=== PATIENT | female | born 1935 | race Caucasian/White ===

== ENCOUNTER 2023-09-05 14:10 | Inpatient (IN) | payer MEDICARE, BC, SELFPAY ==
[2023-09-05] VITALS (8 sets, daily range): BP systolic 85–128; BP diastolic 43–62; BMI 15.3
--- NOTE | 2023-09-05 09:28 | ED.GENMED ---
History of Present Illness
General
Chief Complaint: Breathing Problem
Source: patient and ambulance crew
Exam Limitations: none
Time Seen by Provider: 09/05/23 09:14
Nursing documentation reviewed up to this point in time: agreed with
History of Present Illness
History of Present Illness:
88-year-old female with a past medical history of hypertension, hyperlipidemia, COPD who presents to the emergency room from [facility] where she lives independently; she presents via EMS for evaluation of shortness of breath. Patient reports that
she has had chronic dyspnea related to her COPD. She says she had an acute worsening of her dyspnea this morning when she woke up. She says that she normally goes for a long walk every morning and does yoga but that this morning her activity was
limited by shortness of breath�she says she could not catch her breath. She says she has had a chronic cough with her COPD it seems a bit worse this morning and has been productive of clear sputum. She says she has some mild right-sided chest
discomfort. She denies any recent fever or chills. She has not noticed any swelling or pain in the legs. She denies any GI issues. She denies any other complaints. She says she has been taking her home medications including her Spiriva without
missing any doses. Per EMS report they did give her 10 mg of Decadron and a single DuoNeb.
Past History
Past History
ED Past Medical History: HTN and Hypercholesterolemia
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
Social History
Tobacco: Former smoker
Alcohol: None
Drug: None
Living: alone
Review of Systems
Review of Systems
All Other Systems: ROS reviewed and negative except as documented in HPI and ROS
Constitutional: Denies fever or chills
EENT: Denies sore throat or runny nose
Respiratory: Reports cough and trouble breathing
Cardiac: Reports chest pain; Denies diaphoresis or palpitations
ABD/GI: Denies abdominal pain, nausea, vomiting or diarrhea
: Denies flank pain
Musculoskeletal: Denies neck pain or back pain
Neurological: Denies headache, weakness or numbness
Phy Exam
Physical Exam
Physical Exam:
General: Awake, alert, oriented x3; no acute distress
Head: Normocephalic, atraumatic
Eyes: Conjunctiva normal, EOMI
Throat: Airway intact, handling secretions
Neck: Trachea midline, supple without meningismus, no JVD
Lungs: Patient is tachypneic with a respiratory rate of 26, pulse ox low normal 92% on room air; she has no audible wheezing or rales on lung auscultation; she is speaking in full sentences, no increased work of breathing, not in respiratory distress
Heart: Tachycardia with regular rhythm; she has a holosystolic murmur best heard left upper sternal border
Abd: Soft, non distended, nontender
Neuro: No gross deficits
Skin: no rash, no clubbing or cyanosis
Extremities: No edema in extremities, warm and well-perfused
Scores
Heart Failure Risk
Heart Failure Risk Score: Not Applicable
Heart Score for Chest Pain Patients
STEMI patient?: Not applicable
Withdrawal Assessment of Alcohol
Withdrawal Assessment Completed?: Not applicable
Course
Orders/Labs/Results
Orders:
Orders
09/05/23 09:15
Electrocardiogram (*1) Urgent
Reason for Study: Shortness of Breath
EKG- Treatment ONCE
CR Chest Portable - 1 View Urgent
Comment:
Reason For Exam: sob
Reason Study Needs to be Portable: Unable to Transport
09/05/23 09:30
Ipratropium/Albuterol Sulfate [Duoneb] 3 ml INH R NOW STA
09/05/23 09:51
COVID-19 Antigen Urgent
Source: Nasal Swab
Complete Blood Count/With Diff Urgent
Comprehensive Metabolic Panel Urgent
D-Dimer Urgent
NT-proBNP Urgent
PTT Urgent
Prothrombin Time Urgent
Troponin I Urgent
Influenza A+B Rapid Molecular Urgent
ROGE Source: Nasal Swab
Specimen Description:
09/05/23 10:44
Azithromycin 500 mg/250 ml [Zithromax Infusion] 500 mg in 250 ml IV NOW
CefTRIAXone [Rocephin] 1,000 mg IV NOW STA
09/05/23 11:25
Lactate Level [Lactic Acid] Urgent
Blood Culture Q30M
ROGE Source: Blood/Venous
Specimen Description:
Blood Culture Q30M
ROGE Source: Blood/Venous
Specimen Description:
Abnormal Lab Results
09/05/23 09/05/23
09:51 11:25
Abs Immat Gran (auto) 0.1 H 10^3/uL
(0-0.05)
Absolute Neuts (auto) 7.1 H 10^3/uL
(1.4-6.5)
Absolute Monos (auto) 0.9 H 10^3/uL
(0.1-0.6)
Lymphocytes % 17.2 L %
(20.5-51.1)
Monocytes % 9.4 H %
(1.7-9.3)
D-Dimer 0.84 H ug/mlFEU
(0.00-0.50)
BUN 22 H mg/dl
(7-17)
Glucose 139 H mg/dl
(70-99)
Lactic Acid 3.0 H mmol/L
(0.7-2.0)
AST 38 H U/L
(14-36)
09/05/23 09:51
09/05/23 09:51
Vital Signs
Initial and Last Documented VS:
Initial Vital Signs
Temp Pulse Resp BP Pulse Ox
36.7 C 104 22 106/43 94
09/05/23 09:31 09/05/23 09:31 09/05/23 09:31 09/05/23 09:31 09/05/23 09:31
Last Documented Vital Signs
Temp Pulse Resp BP Pulse Ox
36.7 C 111 18 128/47 91
09/05/23 09:31 09/05/23 11:33 09/05/23 11:33 09/05/23 11:33 09/05/23 11:33
MDM/Problems Addressed
Differential Diagnosis Includes:
COPD exacerbation, pneumonia, pneumothorax, pulmonary embolism, anemia
MDM/Problems Addressed:
88-year-old female presents for evaluation of acute on chronic dyspnea and cough started this morning. She is tachycardic and tachypneic with a low normal pulse ox on arrival here. EMS gave her steroids and DuoNeb on the way to the hospital. On
exam here she has no significant wheezing. She is not edematous has no JVD or signs of heart failure. She does have a systolic murmur. Will plan to place an IV check labs including CBC and a CMP; will check cardiac enzymes, proBNP and a D-dimer.
Will check a chest x-ray. Will send viral swabs. Will treat with an additional DuoNeb and monitor for subjective improvement�although she has no significant wheezing on exam she does have a long history of COPD. Will monitor closely reassess
after the above.
Labs reviewed: CBC unremarkable, CMP shows no clinically significant abnormalities. Troponin negative, BNP no significant elevation. D-dimer age-adjusted is negative. Chest x-ray reviewed by me shows right midlung opacity concerning for
pneumonia. With multiple SIRS criteria and concern for pneumonia added lactate and blood cultures. Will treat with ceftriaxone and azithromycin. CURB-65 score 3 (age >65, BUN >19, diastolic BP <60) puts in high risk category. Will plan for
admission for continued treatment. Case discussed with hospitalist for admission.
Chronic conditions affecting care:
COPD
*Radiology
Radiology exam reviewed: preliminary read by ED provider and radiology read reviewed
*Pulse Oximetry
Patient hypoxic: no
*EKG
Interpreted by ED Provider?: Yes
Heart Rate: 109
Rate: tachycardiac
Rhythm: sinus and sinus tachycardia
[place]: normal axis
Interval: normal interval
QRS Pattern: normal QRS
Ischemia: no ischemia
*Critical Care Note
Total Time (30-74mins, 75-104mins- exclusive of procedures): Not Applicable
Data Reviewed
Review of Other/Old Records Reveals: Labs and Records
Source: patient, records and ambulance crew
ED Attending Note
-
Portions of this chart may have been created with voice recognition software.� Occasional wrong word or��sound alike� substitutions may have occurred due to the inherent limitations of voice recognition software.
Discharge Plan
Departure
Patient Disposition: Admit
Date of Disposition: 09/05/23
Time of Disposition: 10:47
Admit to doctor: Pravin
Presentation/result/management discussed w/ accepting MD/DO: Hospitalist
Discharge Problem:
Pneumonia
Prescriptions:
No Action
rosuvastatin 10 MG tablet
20 mg PO QPM
Patient Comments:
PT NO LONGER TAKES
diltiazem HCl 180 mg Capsule,Extended Release 24 Hr
180 mg PO BID
losartan 50 mg Tablet
50 mg PO DAILY
ipratropium-albuterol 0.5 mg-3 mg(2.5 mg base)/3 mL Solution For Nebulization
3 ml INHALATION
Referrals:
UNKNOWN - PT DOES,NOT KNOW [Family Provider] -
Interventions
Interventions:
*Risk Screen - Suicide Last Done: 09/05/23 09:31
*General Assessment Last Done: 09/05/23 09:31
*Neglect/Abuse Screening Last Done: 09/05/23 09:31
*ED COVID-19 Vaccine History Last Done: 09/05/23 09:31
ED- Cardiac Assessment Last Done: 09/05/23 10:41
ED- Pulmonary Assessment Last Done: 09/05/23 10:41
[2023-09-05] MEDS: DUONEB 3 ML INH ×3 (09:57→20:54)
[2023-09-05 10:02] LABS: % Basophils 0.6 % (0-2); % Eosinophils 0.7 % (0-6); % Immature Granulocytes 0.5 % (0-0.5); % Lymphocytes 17.2 % (20.5-51.1); % Monocytes 9.4 % (1.7-9.3); % Neutrophils 71.6 % (42.2-75.2); Absolute Basophils 0.1 10^3/uL (0-0.2); Absolute Eosinophils 0.1 10^3/uL (0-0.7); Absolute Immature Granulocytes 0.1 10^3/uL (0-0.05); Absolute Lymphocytes 1.7 10^3/uL (1.2-3.4); Absolute Monocytes 0.9 10^3/uL (0.1-0.6); Absolute Neutrophils 7.1 10^3/uL (1.4-6.5); Hematocrit 43.7 % (37.0-47.0); Hemoglobin 14.4 g/dL (12.0-16.0); Mean Corpuscular Hgb 30.9 pg (27.0-31.0); Mean Corpuscular Volume 93.8 fL (81.0-99.0); Mean Platelet Volume 9.9 fL (7.4-10.4); Nucleated Red Blood Cells % 0 %; Platelet Count 328 10^3/uL (130-400); Red Blood Cell Count 4.66 10^6/uL (4.20-5.40); Red Cell Dist. Width 12.7 % (11.5-14.5); White Blood Cell Count 9.9 10^3/uL (4.8-10.8)
[2023-09-05 10:12] LABS: ALT (SGPT) 25 U/L (0-35); AST (SGOT) 38 U/L (14-36); Albumin 4.2 g/dl (3.5-5.0); Alkaline Phosphatase 83 U/L (38-126); Blood Urea Nitrogen 22 mg/dl (7-17); Calcium 8.9 mg/dl (8.4-10.2); Carbon Dioxide 23 mmol/L (22-30); Chloride 106 mmol/L (98-107); Estimated Creatinine Clearance 32 ml/min; Glucose 139 mg/dl (70-99); Potassium 3.7 mmol/L (3.5-5.1); Sodium 139 mmol/L (135-145); Total Bilirubin 0.8 mg/dl (0.2-1.3); Total Protein 7.6 g/dl (6.3-8.2); eGFR > 60.00
[2023-09-05 10:22] LABS: COVID-19 Antigen Negative (Negative)
[2023-09-05 10:31] LABS: NT-proBNP 382 pg/ml; Troponin I < 0.012 ng/ml
[2023-09-05 10:46] LABS: INR 1.01; PT 13.3 Sec (11.4-14.6)
[2023-09-05 10:49] LABS: D-Dimer 0.84 ug/mlFEU (0.00-0.50)
[2023-09-05] MEDS: ZITHROMAX INFUSION 250 IV (11:28)
[2023-09-05] MEDS: ROCEPHIN 1000 MG IV (11:28)
--- NOTE | 2023-09-05 12:35 | PHANOTE ---
09/05/2023, med rec tech, used [facility] records and pharmacy fill data and called pt.'s pharmacy ([facility]) to confirm pt.'s meds.; pt. gets a pill pack sent to [facility] with all of their meds.; although Alendronate 70 mg (pt. supposed to take
on Sundays per family) is included in pt.'s pill pack, per family, pt. does not take this med.
--- NOTE | 2023-09-05 13:16 | HPS.HSE ---
Addendum entered and electronically signed by Renetta Horn MD 09/05/23 14:09:
d-dimer not elevated when adjusted for age. symptoms improved with nebulizers, not concerned for PE.
Original Note:
Family Physician
-
Family Physician: NOT KNOW UNKNOWN - PT DOES
Chief Complaint
-
shortness of breath
History of Present Illness
Ms. Neha Phillips is a 88 yo woman with hx HTN, HLD, COPD presents to the ER with shortness of breath. She was given 10mg IV Decadron and duoneb by EMS.
Patient states symptoms started this morning after she woke up. She does yoga and walks every morning. She uses her inhaler once a day. Denies fevers. + cough productive of increased sputum. no hemoptysis. Patient currently feeling better in
the ER.
No chest pain. No nausea/vomiting/diarrhea. No LE swelling.
Medical History
Past Medical History
Past Medical History: Reports Other ( hypertension, hypercholesteremia, COPD, bronchiectasis, kidney stones, former smoker,)
Past Surgical History: Reports Other (of hypertension, hypercholesteremia, COPD, bronchiectasis, kidney stones, former smoker)
Social History
Tobacco: Former Smoker
Alcohol: Former
Drug: None
Family History
Family History: Not pertinent
Allergies / Home Medications
Allergies reflects when Allergies were last updated in [facility].
Home Medications with original date entered in [facility]
Allergy/Medication List:
Allergies
Allergy/AdvReac Type Severity Reaction Status Date / Time
No Known Allergies Allergy Unverified 03/20/23 14:38
Home Medications
rosuvastatin 10 mg tablet 10 mg PO QPM High Cholesterol 05/18/09
diltiazem HCl 180 mg capsule,24 hr,extended release 180 mg PO BID Arrhythmia 12/20/22
losartan 50 mg tablet 50 mg PO DAILY Blood Pressure 12/20/22
ipratropium 0.5 mg-albuterol 3 mg (2.5 mg base)/3 mL nebulization soln 3 ml inhalation R DAILY 03/20/23
albuterol sulfate 90 mcg/actuation aerosol inhaler 2 puff inhalation R Q6HPRN PRN sob 09/05/23
mirtazapine 7.5 mg tablet 7.5 mg PO HS 09/05/23
Review of Systems
-
History Source: Patient
A 12 point ROS was completed and negative except as noted: Yes
Physical Exam
Vital Signs
Vital Signs
Temp Pulse Resp BP Pulse Ox
98.1 F 105 21 110/57 91
09/05/23 09:31 09/05/23 12:30 09/05/23 12:30 09/05/23 12:00 09/05/23 12:30
Physical Exam
General: No Apparent Distress
HEENT: PERRLA
Respiratory: Other (mild end expiratory wheezing)
Cardiac: S1/S2 and Regular Rhythm
GI: Soft and Non Tender
Musculoskeletal: No Edema
Skin: Warm and Dry; No Rash
Neuro: AO x 3
Psych: Calm
Laboratory Results
-
09/05/23 09:51
09/05/23 09:51
Laboratory Results
PT 13.3 Sec (11.4-14.6) 09/05/23 09:51
INR 1.01 09/05/23 09:51
APTT 30.0 Sec (23.4-35.0) 09/05/23 09:51
Lactic Acid 3.0 mmol/L (0.7-2.0) H 09/05/23 11:25
Total Bilirubin 0.8 mg/dl (0.2-1.3) 09/05/23 09:51
AST 38 U/L (14-36) H 09/05/23 09:51
ALT 25 U/L (0-35) 09/05/23 09:51
Alkaline Phosphatase 83 U/L (38-126) 09/05/23 09:51
Troponin I < 0.012 ng/ml 09/05/23 09:51
Data Reviewed
-
Diagnostic Radiology: Report Reviewed by me
Lab Data: Labs Reviewed by me
Impression/Plan
-
Ms. Neha Phillips is a 88 yo woman with hx HTN, HLD, COPD presents to the ER with shortness of breath. She was given 10mg IV Decadron and duoneb by EMS.
Triage VS: T 36.7, P 104, RR 22, BP 106/43, SpO2 94%
LABS: WBC 9.9, Hg 14.4, PLT 328, Na 139, K+ 3.7, BUN 22, Cr 0.8, Glucose 139, Lactate 3.0, Ca 8.9, T. Bili 0.8, AST 38, ALT 25, Alk Phos 83
Trop < 0.012
BNP 382
Flu negative, covid negative
CXR
IMPRESSION:
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
Right midlung Pneumonia
-admit to med/surg
-continue cef/azithro
-sputum culture
-mucinex, acapella
-gentle IVF
COPD, acute exacerbation
-s/p decadron by EMS - will continue starting tomorrow
-duonebs
HLD
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
HTN
-hold Losartan for now - resume if hypertensive
Elevated Lactate
-likely 2/2 increased work of breathing - trend
-gentle IVF
DVT PPx lovenox
DNR - discussed on admission
[2023-09-05] MEDS: NSS 1000 IV ×2 (14:34→18:31)
[2023-09-05 16:17] LABS: Lactic Acid 4.1 mmol/L (0.7-2.0)
[2023-09-05] MEDS: DUONEB INH (16:26)
[2023-09-05] MEDS: CRESTOR 10 MG PO (17:27)
[2023-09-05] MEDS: LOVENOX 40 MG SC (17:27)
--- NOTE | 2023-09-05 18:10 | PTCARENOTE ---
pt admitted from ED awake alert x3 appears anxious and forgetful. lungs coarse throughout b/l on 2L. +BS4 abd soft NT. pt cont b&B. skin CDI +PP b/l
[2023-09-05] MEDS: CARDIZEM CD PO (20:29)
[2023-09-05] MEDS: MUCINEX 600 MG PO (20:30)
[2023-09-05] MEDS: REMERON 7.5 MG PO (21:06)
[2023-09-05 21:38] LABS: Lactic Acid 3.4 mmol/L (0.7-2.0)
[2023-09-06] MEDS: DECADRON 4 MG IV (05:04)
[2023-09-06 05:33] LABS: % Basophils 0.1 % (0-2); % Immature Granulocytes 0.5 % (0-0.5); % Lymphocytes 5.3 % (20.5-51.1); % Monocytes 2.5 % (1.7-9.3); % Neutrophils 91.6 % (42.2-75.2); Absolute Immature Granulocytes 0.1 10^3/uL (0-0.05); Absolute Lymphocytes 0.8 10^3/uL (1.2-3.4); Absolute Monocytes 0.4 10^3/uL (0.1-0.6); Absolute Neutrophils 13.9 10^3/uL (1.4-6.5); Hematocrit 40.2 % (37.0-47.0); Hemoglobin 12.9 g/dL (12.0-16.0); Mean Corp Hgb Conc. 32.1 g/dL (33.0-37.0); Mean Corpuscular Hgb 30.4 pg (27.0-31.0); Mean Corpuscular Volume 94.8 fL (81.0-99.0); Mean Platelet Volume 9.5 fL (7.4-10.4); Nucleated Red Blood Cells % 0 %; Platelet Count 306 10^3/uL (130-400); Red Blood Cell Count 4.24 10^6/uL (4.20-5.40); Red Cell Dist. Width 12.9 % (11.5-14.5); White Blood Cell Count 15.2 10^3/uL (4.8-10.8)
[2023-09-06 05:41] LABS: Lactic Acid 1.7 mmol/L (0.7-2.0)
[2023-09-06 06:00] VITALS: BMI 17.5
[2023-09-06 06:21] LABS: Blood Urea Nitrogen 21 mg/dl (7-17); Calcium 8.4 mg/dl (8.4-10.2); Carbon Dioxide 23 mmol/L (22-30); Chloride 111 mmol/L (98-107); Estimated Creatinine Clearance 42 ml/min; Glucose 122 mg/dl (70-99); Potassium 4.6 mmol/L (3.5-5.1); Sodium 140 mmol/L (135-145); eGFR > 60.00
[2023-09-06 07:00] VITALS: BP 103/60
[2023-09-06] MEDS: DUONEB 3 ML INH ×4 (08:13→19:25)
[2023-09-06] MEDS: ZITHROMAX 500 MG PO (08:18)
[2023-09-06] MEDS: MUCINEX 600 MG PO ×2 (08:18→21:17)
[2023-09-06] MEDS: CARDIZEM CD PO ×2 (08:19→21:16)
--- NOTE | 2023-09-06 09:47 | W.PN.HOSP.TC ---
Today's Communication/Plan
-
sputum culture
continue cef/azithro for now - low threshold to change to levaquin if clinical worsening/no improvement (patient states she feels better today)
decadron/nebs
Assessment / Plan
Assessment / Plan
Ms. Neha Phillips is a 88 yo woman with hx HTN, HLD, COPD presents to the ER with shortness of breath.� She was given 10mg IV Decadron and duoneb by EMS.
CXR
IMPRESSION:
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
Right midlung Pneumonia
-admitted to med/surg
-continue cef/azithro (day 2). hx pseudomonas PNA in past. given improvement on this regimen do not see need to broaden abx now but low threshold if clinically worsens - discussed with RN obtaining sputum culture
-mucinex, acapella
Lactic Acidosis
-s/p fluids
-resolved this AM
COPD, acute exacerbation
-s/p decadron by EMS - will continue
-duonebs
HLD
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
HTN
-hold Losartan for now - resume if hypertensive
DVT PPx lovenox
DNR - discussed on admission
Anticipated Discharge: 24 - 48 hours
Subjective/Interval History
-
Date of Service: September 06, 2023
feeling better this morning
wants to stay one more night
out of breath when talks rapidly and with exertion
Objective Data
-
Labs:
Laboratory Results
09/06/23
05:23
WBC 15.2 H
Hgb 12.9
Hct 40.2
Plt Count 306
Sodium 140
Potassium 4.6
Chloride 111 H
Carbon Dioxide 23
BUN 21 H
Creatinine 0.6
Glucose 122 H
Calcium 8.4
Vital Signs:
Vital Signs
Temp Pulse Resp BP Pulse Ox
98.1 F 86 17 103/60 99
09/06/23 07:00 09/06/23 08:19 09/06/23 07:00 09/06/23 08:19 09/06/23 07:00
I&O
09/05/23 09/06/23 09/07/23
06:59 06:59 06:59
Intake Total 480 / 480
Balance 480 / 480
Review of Systems
-
History Source: Patient
All other systems: Reviewed and negative
Physical Exam
-
General: Appears Chronically Ill and Cachectic
HEENT: Normocephalic and Atraumatic; Negative Oxygen
Respiratory: Rhonchi and Other (mild end expiratory wheezing )
Cardiac: Regular Rhythm and S1/S2; Negative Murmur
GI: Soft, Nontender, Nondistended and Normal Bowel Sounds
Musculoskeletal: No Clubbing, No Cyanosis and No Edema
Skin: Warm
Neuro: Awake
Psych: Calm
Data Reviewed
-
Diagnostic Radiology: Report Reviewed by me
Labs: Labs Reviewed by me
[2023-09-06] MEDS: ROCEPHIN 1000 MG IV (12:38)
[2023-09-06] MEDS: STERILE WATER FOR INJECTION 10 ML IV (12:39)
[2023-09-06] MEDS: DECADRON 3 MG IV ×2 (14:05→21:17)
[2023-09-06 14:55] VITALS: BP 98/51
--- NOTE | 2023-09-06 16:38 | CM ---
Met with pt at bedside
From independent living at [facility]
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
Denies DME
SNF - [facility] in past
HH - denies
PCP- Dr Richardson
Pharm - [facility]
Has ride at d/c
Plan - anticipate home to previous setting
[2023-09-06] MEDS: CRESTOR 10 MG PO (17:15)
[2023-09-06] MEDS: LOVENOX 40 MG SC (17:16)
[2023-09-06] MEDS: REMERON 7.5 MG PO (21:27)
[2023-09-06 23:35] VITALS: BP 113/57
[2023-09-07] MEDS: DECADRON 3 MG IV ×3 (05:41→21:49)
[2023-09-07 05:47] LABS: % Basophils 0.1 % (0-2); % Immature Granulocytes 0.6 % (0-0.5); % Lymphocytes 3.9 % (20.5-51.1); % Monocytes 2.3 % (1.7-9.3); % Neutrophils 93.1 % (42.2-75.2); Absolute Immature Granulocytes 0.1 10^3/uL (0-0.05); Absolute Lymphocytes 0.9 10^3/uL (1.2-3.4); Absolute Monocytes 0.5 10^3/uL (0.1-0.6); Absolute Neutrophils 21.3 10^3/uL (1.4-6.5); Hematocrit 41.7 % (37.0-47.0); Hemoglobin 13.7 g/dL (12.0-16.0); Mean Corp Hgb Conc. 32.9 g/dL (33.0-37.0); Mean Corpuscular Hgb 31.1 pg (27.0-31.0); Mean Corpuscular Volume 94.8 fL (81.0-99.0); Mean Platelet Volume 9.8 fL (7.4-10.4); Nucleated Red Blood Cells % 0 %; Platelet Count 331 10^3/uL (130-400); Red Cell Dist. Width 13.2 % (11.5-14.5); White Blood Cell Count 22.9 10^3/uL (4.8-10.8)
[2023-09-07 06:13] LABS: Blood Urea Nitrogen 27 mg/dl (7-17); Calcium 9.1 mg/dl (8.4-10.2); Carbon Dioxide 27 mmol/L (22-30); Chloride 108 mmol/L (98-107); Estimated Creatinine Clearance 48 ml/min; Glucose 130 mg/dl (70-99); Potassium 5.1 mmol/L (3.5-5.1); Sodium 143 mmol/L (135-145); eGFR > 60.00
[2023-09-07 07:00] VITALS: BP 164/91
[2023-09-07] MEDS: DUONEB 3 ML INH ×4 (07:38→17:56)
[2023-09-07] MEDS: MUCINEX 600 MG PO (08:37)
[2023-09-07] MEDS: ZITHROMAX 500 MG PO (08:37)
[2023-09-07] MEDS: CARDIZEM CD 180 MG PO (08:37)
[2023-09-07 09:34] VITALS: BP 133/75; PULSE 110; PULSE 127; O2SAT 95
[2023-09-07 09:43] VITALS: BP 133/75; PULSE 107; PULSE 127; O2SAT 95
--- NOTE | 2023-09-07 10:09 | W.PN.HOSP.TC ---
Today's Communication/Plan
-
possible DC later today if home O2 testing OK
Assessment / Plan
Assessment / Plan
Ms. Neha Phillips is a 88 yo woman with hx HTN, HLD, COPD presents to the ER with shortness of breath.� She was given 10mg IV Decadron and duoneb by EMS.
CXR
IMPRESSION:
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
Right midlung Pneumonia
-admitted to med/surg
-day 3 abx. hx pseudomonas PNA in past. with rise in WBC and return of need for O2 - will broaden to cefepime. sputum culture is growing gram negative rods
-mucinex, acapella
-*patient very anxious for discharge and does not want to wait for final culture. If she is able to be discharged off oxygen then I would DC on LEvaquin and change back to cefdinir tomorrow if different species isolated
Lactic Acidosis
-s/p fluids
-resolved this AM
COPD, acute exacerbation
Hypoxic resp insufficiency
-s/p decadron by EMS - will continue
-duonebs
HLD
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
HTN
-hold Losartan for now - resume if hypertensive
DVT PPx lovenox
DNR - discussed on admission
Anticipated Discharge: Within 24 hours
Subjective/Interval History
-
Date of Service: September 07, 2023
patient anxious
wanting to leave today
Objective Data
-
Labs:
Laboratory Results
09/07/23
05:29
WBC 22.9 H
Hgb 13.7
Hct 41.7
Plt Count 331
Sodium 143
Potassium 5.1
Chloride 108 H
Carbon Dioxide 27
BUN 27 H
Creatinine 0.6
Glucose 130 H
Calcium 9.1
Vital Signs:
Vital Signs
Temp Pulse Resp BP Pulse Ox
97.7 F 107 18 133/75 95
09/07/23 07:00 09/07/23 08:37 09/07/23 07:45 09/07/23 08:37 09/07/23 07:45
I&O
09/06/23 09/07/23 09/08/23
06:59 06:59 06:59
Intake Total 480 / 480 570 / 570
Balance 480 / 480 570 / 570
Review of Systems
-
History Source: Patient
All other systems: Reviewed and negative
Physical Exam
-
General: Appears Chronically Ill and Cachectic
HEENT: Normocephalic and Atraumatic; Negative Oxygen
Respiratory: Rhonchi and Other (mild end expiratory wheezing )
Cardiac: Regular Rhythm and S1/S2; Negative Murmur
GI: Soft, Nontender, Nondistended and Normal Bowel Sounds
Musculoskeletal: No Clubbing, No Cyanosis and No Edema
Skin: Warm
Neuro: Awake
Psych: Calm
Data Reviewed
-
Diagnostic Radiology: Report Reviewed by me
Labs: Labs Reviewed by me
[2023-09-07] MEDS: MAXIPIME 2000 MG IV ×2 (11:41→21:57)
[2023-09-07] MEDS: STERILE WATER FOR INJECTION 10 ML IV ×2 (11:41→21:57)
[2023-09-07 15:00] VITALS: BP 116/57
[2023-09-07] MEDS: LOVENOX 40 MG SC (16:31)
[2023-09-07] MEDS: CRESTOR 10 MG PO (16:32)
[2023-09-07] MEDS: MUCINEX PO ×2 (21:49→22:08)
[2023-09-07] MEDS: CARDIZEM CD PO (21:50)
[2023-09-07] MEDS: REMERON 7.5 MG PO (21:57)
[2023-09-07 23:20] VITALS: BP 113/70
[2023-09-08] MEDS: DECADRON 3 MG IV ×3 (05:44→21:27)
[2023-09-08 06:04] LABS: % Basophils 0.2 % (0-2); % Immature Granulocytes 0.7 % (0-0.5); % Lymphocytes 3.7 % (20.5-51.1); % Monocytes 3.3 % (1.7-9.3); % Neutrophils 92.1 % (42.2-75.2); Absolute Immature Granulocytes 0.1 10^3/uL (0-0.05); Absolute Lymphocytes 0.7 10^3/uL (1.2-3.4); Absolute Monocytes 0.6 10^3/uL (0.1-0.6); Absolute Neutrophils 16.1 10^3/uL (1.4-6.5); Hematocrit 38.7 % (37.0-47.0); Hemoglobin 12.7 g/dL (12.0-16.0); Mean Corp Hgb Conc. 32.8 g/dL (33.0-37.0); Mean Corpuscular Hgb 30.8 pg (27.0-31.0); Mean Corpuscular Volume 93.9 fL (81.0-99.0); Mean Platelet Volume 9.8 fL (7.4-10.4); Nucleated Red Blood Cells % 0 %; Platelet Count 339 10^3/uL (130-400); Red Blood Cell Count 4.12 10^6/uL (4.20-5.40); Red Cell Dist. Width 13.2 % (11.5-14.5); White Blood Cell Count 17.5 10^3/uL (4.8-10.8)
[2023-09-08 06:24] LABS: Blood Urea Nitrogen 31 mg/dl (7-17); Calcium 8.8 mg/dl (8.4-10.2); Carbon Dioxide 27 mmol/L (22-30); Chloride 106 mmol/L (98-107); Estimated Creatinine Clearance 48 ml/min; Glucose 123 mg/dl (70-99); Potassium 4.8 mmol/L (3.5-5.1); Sodium 140 mmol/L (135-145); eGFR > 60.00
[2023-09-08 07:00] VITALS: BP 150/93
[2023-09-08] MEDS: DUONEB 3 ML INH ×4 (07:27→19:23)
[2023-09-08] MEDS: CARDIZEM CD 180 MG PO ×2 (08:34→20:09)
[2023-09-08] MEDS: MUCINEX 600 MG PO ×2 (08:34→20:09)
--- NOTE | 2023-09-08 10:33 | W.PN.HOSP.TC ---
Today's Communication/Plan
-
home O2 testing
patient very anxious for DC - if doesn't need O2 will need to discuss DC on Levaquin with risk would need to return if pseudomonas is resistant. will also discuss with son
Assessment / Plan
Assessment / Plan
Ms. Neha Phillips is a 88 yo woman with hx HTN, HLD, COPD presents to the ER with shortness of breath.� She was given 10mg IV Decadron and duoneb by EMS.
CXR
IMPRESSION:
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
Right midlung Pneumonia
COPD, acute exacerbation
Hypoxic resp insufficiency
-admitted to med/surg
-hx pseudomonas PNA in past. started on IV Cefepime 09/06 - per micro final sensitivities not back until tomorrow but looks like pseudomonas. Prior Pseudomonas sensitive to Fluoroquinolones.
-IV Decadron, DC on prednisone taper when ready for DC
-mucinex, acapella
-duonebs
-repeat home O2 testing today
-per micro final culture won't be back today but looks like pseudomonas
Lactic Acidosis
-s/p fluids
-resolved
HLD
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
HTN
-resume losartan
DVT PPx lovenox
DNR - discussed on admission
Anticipated Discharge: Within 24 hours
Subjective/Interval History
-
Date of Service: September 08, 2023
she is feeling better
very eager to go home
she is practicing deep breathing
Objective Data
-
Labs:
Laboratory Results
09/08/23
05:18
WBC 17.5 H
Hgb 12.7
Hct 38.7
Plt Count 339
Sodium 140
Potassium 4.8
Chloride 106
Carbon Dioxide 27
BUN 31 H
Creatinine 0.6
Glucose 123 H
Calcium 8.8
Vital Signs:
Vital Signs
Temp Pulse Resp BP Pulse Ox
98.5 F 90 18 150/93 95
09/08/23 07:00 09/08/23 07:32 09/08/23 07:32 09/08/23 07:00 09/08/23 07:32
I&O
09/07/23 09/08/23 09/09/23
06:59 06:59 06:59
Intake Total 570 / 570 540 / 540
Balance 570 / 570 540 / 540
Review of Systems
-
History Source: Patient
All other systems: Reviewed and negative
Physical Exam
-
General: No Apparent Distress and Appears Chronically Ill
HEENT: Normocephalic and Atraumatic; Negative Oxygen
Respiratory: Other (no wheezing today ); Negative Wheezes
Cardiac: Regular Rhythm and S1/S2; Negative Murmur
GI: Soft, Nontender, Nondistended and Normal Bowel Sounds
Musculoskeletal: No Clubbing, No Cyanosis and No Edema
Skin: Warm
Neuro: Awake
Psych: Calm
Data Reviewed
-
Diagnostic Radiology: Report Reviewed by me
Labs: Labs Reviewed by me
[2023-09-08] MEDS: STERILE WATER FOR INJECTION 10 ML IV ×2 (11:02→21:28)
[2023-09-08] MEDS: COZAAR 50 MG PO (11:02)
[2023-09-08] MEDS: MAXIPIME 2000 MG IV ×2 (11:02→21:28)
[2023-09-08 15:00] VITALS: BP 124/68
[2023-09-08] MEDS: CRESTOR 10 MG PO (17:14)
[2023-09-08] MEDS: LOVENOX 40 MG SC (17:14)
[2023-09-08] MEDS: REMERON 7.5 MG PO (21:28)
[2023-09-09 00:20] VITALS: BP 103/62
[2023-09-09 05:51] LABS: % Basophils 0.1 % (0-2); % Immature Granulocytes 0.5 % (0-0.5); % Lymphocytes 4.9 % (20.5-51.1); % Monocytes 3.9 % (1.7-9.3); % Neutrophils 90.6 % (42.2-75.2); Absolute Immature Granulocytes 0.1 10^3/uL (0-0.05); Absolute Lymphocytes 0.7 10^3/uL (1.2-3.4); Absolute Monocytes 0.6 10^3/uL (0.1-0.6); Absolute Neutrophils 13.1 10^3/uL (1.4-6.5); Hematocrit 40.1 % (37.0-47.0); Mean Corp Hgb Conc. 32.4 g/dL (33.0-37.0); Mean Corpuscular Hgb 30.9 pg (27.0-31.0); Mean Corpuscular Volume 95.2 fL (81.0-99.0); Mean Platelet Volume 9.7 fL (7.4-10.4); Nucleated Red Blood Cells % 0 %; Platelet Count 304 10^3/uL (130-400); Red Blood Cell Count 4.21 10^6/uL (4.20-5.40); White Blood Cell Count 14.5 10^3/uL (4.8-10.8)
[2023-09-09] MEDS: DECADRON 3 MG IV (05:57)
[2023-09-09 07:44] VITALS: BP 117/60
[2023-09-09] MEDS: MUCINEX 600 MG PO (07:58)
[2023-09-09] MEDS: CARDIZEM CD 180 MG PO (07:59)
[2023-09-09] MEDS: COZAAR 50 MG PO (07:59)
[2023-09-09] MEDS: DUONEB 3 ML INH ×3 (08:23→15:34)
[2023-09-09 09:29] VITALS: BP 101/49; PULSE 79; O2SAT 95
[2023-09-09] MEDS: STERILE WATER FOR INJECTION 10 ML IV (09:34)
[2023-09-09] MEDS: MAXIPIME 2000 MG IV (09:34)
[2023-09-09 10:09] VITALS: BMI 17.0
--- NOTE | 2023-09-09 11:01 | CM ---
Addendum entered by Maite Dao 09/09/23 14:52:
Transport arranged for 1800
Pts son Steve notified
April at [facility] made aware
Addendum entered by Maite Dao 09/09/23 14:29:
Pt accepted at [facility].
Dr Lawler made aware
Plan - transfer to [facility]
Report - [phone]
Fax - [phone]
Original Note:
CM following for d/c planning
PT/OT recs for SNF
Spoke with pt and called and spoke to yue Wilson
Pt prefers to return to previous setting, but understands why it was recommended
Son agreed with plan
Referral sent in care port - TT to [facility] - asking to review referral
Plan - d/c to SNF when medically ready
--- NOTE | 2023-09-09 11:12 | W.PN.HOSP.TC ---
Addendum entered and electronically signed by Cm Lawler MD 09/10/23 08:50:
More than 30 minutes spent in discharge including
Final examination of the patient
Summarizing hospital stay
Instructions for continuing care to all relevant caregivers
Preparation of discharge records, prescriptions, and referral forms
Total time spent (in minutes): 42
Addendum entered and electronically signed by Cm Lawler MD 09/09/23 12:11:
Finally able to get in touch [facility] y[facility] Wilson-updated in details. Son agreed for dc planning today if SNF bed found.
Original Note:
Today's Communication/Plan
-
await placement
po abx on dc
Assessment / Plan
Assessment / Plan
Ms. Neha Phillips is a 88 yo woman with hx HTN, HLD, COPD presents to the ER with shortness of breath.� She was given 10mg IV Decadron and duoneb by EMS.
CXR
IMPRESSION:
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
Right midlung Pneumonia
COPD, acute exacerbation
Hypoxic resp insufficiency
-hx pseudomonas PNA in past. started on IV Cefepime 09/06 .
-Sputum sample-sensitive for levaquin. Qtc 460 wnl.
- DC on prednisone taper on dc
-mucinex, acapella
-duonebs
-Patient is in need of oxygen on exertion due to pulse oximetry of 92% on room air at rest; 88% on room air with exertion. Patient was placed on 2L O2 via nasal cannula with saturation of 93%. Oxygen will help to improve hypoxemia. Patient is
mobile within the home. Albuterol therapy has been discussed and is ineffective in treating hypoxemia-related symptoms. Oxygen will improve the patient's symptoms.
Lactic Acidosis
-s/p fluids
-resolved
HLD
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
HTN
-resume losartan
DVT PPx lovenox
DNR - discussed on admission
Called son x 2 different times. No response. Left VM to call back.
Dispo-medically stable.
Anticipated Discharge: Today
Subjective/Interval History
-
Date of Service: September 09, 2023
feeling better
on 2L NC
afebrile
Objective Data
-
Labs:
Laboratory Results
09/09/23
05:29
WBC 14.5 H
Hgb 13.0
Hct 40.1
Plt Count 304
Vital Signs:
Vital Signs
Temp Pulse Resp BP Pulse Ox
97.6 F 70 16 117/60 98
09/09/23 07:44 09/09/23 08:25 09/09/23 08:25 09/09/23 07:59 09/09/23 08:56
I&O
09/08/23 09/09/23 09/10/23
06:59 06:59 06:59
Intake Total 540 / 540 520 / 520
Balance 540 / 540 520 / 520
Physical Exam
-
General: No Apparent Distress and Appears Chronically Ill
HEENT: Normocephalic, Atraumatic and Oxygen (2LNC )
Respiratory: Clear to Auscultation; Negative Wheezes
Cardiac: Regular Rhythm and S1/S2; Negative Murmur
GI: Soft, Nontender, Nondistended and Normal Bowel Sounds
Musculoskeletal: No Clubbing, No Cyanosis and No Edema
Skin: Warm
Neuro: Awake and Nonfocal/Grossly Intact
Psych: Calm
--- NOTE | 2023-09-09 14:27 | W.DCSUMMARY ---
Discharge Summary
Discharge Data
Date of Admission: 09/05/23
Date of Discharge: 09/09/23
-
Pending Results: No
Hospital Course
88 female past medical history of hypertension, hyperlipidemia, COPD who is presenting with shortness of breath. Patient upon admission underwent chest x-ray which showed there is diffuse interstitial fibrosis with a probable superimposed component
of acute interstitial inflammatory disease/interstitial pneumonia in the right midlung. Patient was on IV steroids and bronchodilators. Patient presented with possible Pseudomonas. Cefepime was started and he was transitioned to p.o. Levaquin on
discharge. Patient QTc was checked and found to be normal. Patient with significant improvement. Patient did qualify for 2 L of oxygenation. Patient with lactic acidosis which resolved. Patient was eval by PT and OT and be discharged to SNF.
Discharge Plan
-
Patient Disposition: Correction/SNF
Discharge Diagnosis/Procedures: Right sided pneumonia
Acute COPD exacerbation
Acute hypoxic respiratory insufficiency
Lactic acidosis
Condition: Fair
Diet: As tolerated
Activity: With assistance and As tolerated
Driving Restrictions: As prior to admission
Others Tests: Recommend Chest Xray in 5-6 weeks to see resolution of pneumonia.
Referrals:
UNKNOWN - PT DOES,NOT KNOW [Family Provider] - in less than 1 week
Prescriptions:
New
guaifenesin 600 mg Tablet Extended Release 12hr
600 mg PO Q12 7 Days Qty: 14 0RF
levofloxacin 750 mg tablet
750 mg PO Q24H Qty: 3 0RF
prednisone 10 mg Tablet
See Rx Instructions .ROUTE .COMPLEX Qty: 30 0RF
Rx Instructions:
Take By Mouth:
40 mg daily x3 days, 30 mg daily x3 days,
20 mg daily x3 days, 10 mg daily x3 days.
Continued
rosuvastatin 10 MG tablet
10 mg PO QPM
diltiazem HCl 180 mg Capsule,Extended Release 24 Hr
180 mg PO BID
losartan 50 mg Tablet
50 mg PO DAILY
mirtazapine 7.5 mg Tablet
7.5 mg PO HS
albuterol sulfate 90 mcg/actuation Hfa Aerosol Inhaler
2 puff INHALATION R Q6HPRN PRN (Reason: sob)
Changed
ipratropium-albuterol 0.5 mg-3 mg(2.5 mg base)/3 mL Solution For Nebulization
3 ml INHALATION R TID Qty: 0 0RF
Discharge Orders:
Discharge Patient (As Directed); Ordered 09/09/23
Ordered By: Cm Lawler
[2023-09-09 15:28] VITALS: BP 96/46
[2023-09-09] MEDS: CRESTOR 10 MG PO (17:00)
[2023-09-09] MEDS: LOVENOX 40 MG SC (17:00)
== END 2023-09-09 18:12 | DRG 178 ==
LOC: 3 WEST ACU 14:10
PROVIDERS: ADMITTING PHYSICIAN Student in an Organized Health Care Education/Training Program; ATTENDING PHYSICIAN Hospitalist; EMERGENCY PHYSICIAN Emergency Medicine
DX: J15.1 Pneumonia due to Pseudomonas (principal); E87.20 Acidosis, unspecified; J44.1 Chronic obstructive pulmonary disease with (acute) exacerbation; J44.0 Chronic obstructive pulmonary disease with (acute) lower respiratory infection; J84.9 Interstitial pulmonary disease, unspecified; R64 Cachexia; Z68.1 Body mass index [BMI] 19.9 or less, adult; Z11.52 Encounter for screening for COVID-19; Z87.891 Personal history of nicotine dependence; I10 Essential (primary) hypertension; Z66 Do not resuscitate; E78.00 Pure hypercholesterolemia, unspecified; R09.02 Hypoxemia; R06.89 Other abnormalities of breathing
CPT/HCPCS: 71045; 80048; 80053; 83605; 83880; 84484; 85025; 85379; 85610; 85730; 87040; 87070; 87077; 87186; 87205; 87502; 87811; 93005; 94640; 96365; 96375; 97116; 97162; 97166; 97530; 97535; 99285

== ENCOUNTER → 2023-10-09 10:44 | Outpatient (REF) | payer MEDICARE, BC, SELFPAY ==
[2023-10-09 11:13] LABS: % Basophils 0.8 % (0-2); % Eosinophils 3.1 % (0-6); % Immature Granulocytes 0.4 % (0-0.5); % Monocytes 8.6 % (1.7-9.3); % Neutrophils 60.1 % (42.2-75.2); Absolute Basophils 0.1 10^3/uL (0-0.2); Absolute Eosinophils 0.2 10^3/uL (0-0.7); Absolute Lymphocytes 2.1 10^3/uL (1.2-3.4); Absolute Monocytes 0.7 10^3/uL (0.1-0.6); Absolute Neutrophils 4.7 10^3/uL (1.4-6.5); Hematocrit 44.2 % (37.0-47.0); Hemoglobin 14.4 g/dL (12.0-16.0); Mean Corp Hgb Conc. 32.6 g/dL (33.0-37.0); Mean Corpuscular Hgb 31.4 pg (27.0-31.0); Mean Corpuscular Volume 96.5 fL (81.0-99.0); Mean Platelet Volume 9.6 fL (7.4-10.4); Nucleated Red Blood Cells % 0 %; Platelet Count 461 10^3/uL (130-400); Red Blood Cell Count 4.58 10^6/uL (4.20-5.40); Red Cell Dist. Width 12.8 % (11.5-14.5); White Blood Cell Count 7.8 10^3/uL (4.8-10.8)
[2023-10-09 11:29] LABS: ALT (SGPT) 25 U/L (0-35); AST (SGOT) 32 U/L (14-36); Albumin 3.8 g/dl (3.5-5.0); Alkaline Phosphatase 81 U/L (38-126); Blood Urea Nitrogen 14 mg/dl (7-17); Calcium 9.8 mg/dl (8.4-10.2); Carbon Dioxide 28 mmol/L (22-30); Chloride 104 mmol/L (98-107); Glucose 81 mg/dl (70-99); HDL Cholesterol 61 mg/dl; LDL Cholesterol, Calculated 71 mg/dl; Potassium 4.5 mmol/L (3.5-5.1); Sodium 139 mmol/L (135-145); Total Bilirubin 0.6 mg/dl (0.2-1.3); Total Cholesterol 149 mg/dl (50-199); Total Protein 6.7 g/dl (6.3-8.2); Triglyceride 88 mg/dl (10-149); Very Low Density Lipoprotein 17 mg/dl (0-30); eGFR > 60.00
== END ==
LOC: OLABPV 10:44
PROVIDERS: ATTENDING PHYSICIAN Family Medicine
DX: E78.2 Mixed hyperlipidemia (principal); E03.9 Hypothyroidism, unspecified; R53.83 Other fatigue; Z13.1 Encounter for screening for diabetes mellitus
CPT/HCPCS: 36415; 80053; 80061; 84443; 85025

== ENCOUNTER → 2023-11-06 14:15 | Outpatient (REF) | payer MEDICARE, BC, SELFPAY | LOC: RAD 14:15 | PROVIDERS: ATTENDING PHYSICIAN Family Medicine | DX: J18.9 Pneumonia, unspecified organism (principal) | CPT/HCPCS: 71046 ==

== ENCOUNTER 2024-02-19 18:18 | Inpatient (IN) | payer MEDICARE, BC, SELFPAY ==
[2024-02-19] VITALS (22 sets, daily range): BP systolic 97–168; BP diastolic 53–75; BMI 17.1; BMI 18.2
[2024-02-19] MEDS: VENTOLIN NEBULES 7.5 MG INH (13:51)
[2024-02-19] MEDS: DECADRON 10 MG IV (13:52)
[2024-02-19] MEDS: ATROVENT NEBULES 1 MG INH (13:52)
--- NOTE | 2024-02-19 13:52 | ED.GENMED ---
History of Present Illness
<JORGE Merchant - Last Filed: 02/19/24 16:53>
General
Chief Complaint: Breathing Problem
Source: patient
Exam Limitations: none
Time Seen by Provider: 02/19/24 13:10
History of Present Illness
History of Present Illness:
88 yr old female with past medical history of COPD on chronic O2 presents to the ER for worsening shortness of breath. Patient started with shortness of breath this morning. Daughter reports patient does have a history of anxiety and she is not
sure if this is a combination of anxiety and COPD which is causing her symptoms. Daughter reports he recently had a in the family and is very anxious. Pt reports she has had intermittent episodes today of shortness of breath that comes in
waves. She did use her nebulizer. She was brought in by EMS on a nonrebreather. 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 Patient denies any recent fevers however she does report she has had a runny nose and feels some postnasal drip.
No prior history of DVT PE.
Past History
<JORGE Merchant - Last Filed: 02/19/24 16:53>
Past History
ED Past Medical History: HTN and Hypercholesterolemia
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
Social History
Tobacco: Former smoker
Alcohol: None
Drug: None
Living: alone
Review of Systems
<JORGE Merchant - Last Filed: 02/19/24 16:53>
Review of Systems
Allergies reviewed?: Yes
Other source history: family
All Other Systems: ROS reviewed and negative except as documented in HPI and ROS
Constitutional: Denies fever, fatigue or chills
EENT: Reports no symptoms
Respiratory: Reports trouble breathing; Denies cough or hemoptysis
Cardiac: Reports no symptoms
ABD/GI: Reports no symptoms
: Reports no symptoms
Musculoskeletal: Reports no symptoms
Skin: Reports no symptoms
Neurological: Reports no symptoms
Psychiatric: Reports no symptoms
Phy Exam
<JORGE Merchant - Last Filed: 02/19/24 16:53>
General Physical Exam
General Presentation: mild distress
General age: appears stated age
General Skin: warm and dry
General Habitus: elderly
General Mental: alert
General Hydration: appears well hydrated
Cardiovascular Exam
Cardiovascular Exam: tachycardia
Pulmonary Exam
Pulmonary Exam: no cough and other (decreased throughout ; tachypneic)
Neurological Exam
Neurological Exam: alert and oriented x3
Brien Coma Scale
Eye Opening: Spontaneous
Verbal Response: Oriented
Motor Response: Obeys Commands
GCS Total Score: 15
Musculoskeletal Exam
Musculoskeletal Exam: full ROM
Skin Exam
Skin Exam: normal color and warm/dry
Psychiatric Exam
Psychiatric Exam: normal mood/affect
Scores
<JORGE Merchant - Last Filed: 02/19/24 16:53>
Heart Failure Risk
Heart Failure Risk Score: Not Applicable
Course
<JORGE Merchant - Last Filed: 02/19/24 16:53>
Orders/Labs/Results
Orders:
Orders
02/19/24 13:46
IV Insert/Care/Rem.- Treatment PRN
Albuterol Sulfate [Ventolin Nebules] 7.5 mg INH R NOW STA
Ipratropium Nebs [Atrovent Nebules] 1 mg INH R NOW STA
02/19/24 13:47
Electrocardiogram (*1) Stat
Reason for Study: Other
Other Reason for Exam: chest pain
Cardiac Monitoring- Treatment ONCE
EKG- Treatment ONCE
CR Chest - 2 Views Urgent
Comment:
Reason For Exam: sob
02/19/24 13:48
Dexamethasone Sod Phosphate [Decadron] 10 mg IV NOW STA
02/19/24 13:53
COVID-19 Antigen Urgent
Source: Nasal Swab
Complete Blood Count/With Diff Urgent
D-Dimer Urgent
02/19/24 14:53
Comprehensive Metabolic Panel Urgent
02/19/24 15:39
CR Chest Portable - 1 View Urgent
Comment:
Reason For Exam: pneumothorax; interval f/u
Reason Study Needs to be Portable: Unable to Transport
02/19/24 16:27
[facility] CONSULT Urgent
Consulting Provider: Ovidio Ackerman
Was physician already notified: Yes
Reason for Consult/Procedure: chest tube
Acknowledgement that appropriate orders are entered: Yes
Abnormal Lab Results
02/19/24 02/19/24
13:53 14:53
WBC 13.8 H 10^3/uL
(4.8-10.8)
Hct 48.7 H %
(37.0-47.0)
MCHC 32.6 L g/dL
(33.0-37.0)
Plt Count 457 H 10^3/uL
(130-400)
MPV 10.5 H fL
(7.4-10.4)
Absolute Neuts (auto) 11.6 H 10^3/uL
(1.4-6.5)
Absolute Monos (auto) 0.7 H 10^3/uL
(0.1-0.6)
Neutrophils % 83.8 H %
(42.2-75.2)
Lymphocytes % 10.0 L %
(20.5-51.1)
D-Dimer 0.58 H ug/mlFEU
(0.00-0.50)
Glucose 104 H mg/dl
(70-99)
02/19/24 13:53
02/19/24 14:53
Vital Signs
Initial and Last Documented VS:
Initial Vital Signs
Pulse Resp BP Pulse Ox
105 25 150/53 96
02/19/24 11:38 02/19/24 11:38 02/19/24 11:38 02/19/24 11:38
Last Documented Vital Signs
Temp Pulse Resp BP Pulse Ox
97.9 F 115 36 168/75 89
02/19/24 11:48 02/19/24 16:30 02/19/24 16:30 02/19/24 16:30 02/19/24 16:30
Protection Mgr consulted with Physician
Name of Physician Consulted: Dr Cordero
<Matti Cordero MD - Last Filed: 02/19/24 15:16>
Orders/Labs/Results
Orders:
Orders
02/19/24 13:46
IV Insert/Care/Rem.- Treatment PRN
Albuterol Sulfate [Ventolin Nebules] 7.5 mg INH R NOW STA
Ipratropium Nebs [Atrovent Nebules] 1 mg INH R NOW STA
02/19/24 13:47
Electrocardiogram (*1) Stat
Reason for Study: Other
Other Reason for Exam: chest pain
Cardiac Monitoring- Treatment ONCE
EKG- Treatment ONCE
CR Chest - 2 Views Urgent
Comment:
Reason For Exam: sob
02/19/24 13:48
Dexamethasone Sod Phosphate [Decadron] 10 mg IV NOW STA
02/19/24 13:53
COVID-19 Antigen Urgent
Source: Nasal Swab
Complete Blood Count/With Diff Urgent
D-Dimer Urgent
02/19/24 14:53
Comprehensive Metabolic Panel Urgent
02/19/24 15:39
CR Chest Portable - 1 View Urgent
Comment:
Reason For Exam: pneumothorax; interval f/u
Reason Study Needs to be Portable: Unable to Transport
02/19/24 16:27
[facility] CONSULT Urgent
Consulting Provider: Ovidio Ackerman
Was physician already notified: Yes
Reason for Consult/Procedure: chest tube
Acknowledgement that appropriate orders are entered: Yes
Abnormal Lab Results
02/19/24 02/19/24
13:53 14:53
WBC 13.8 H 10^3/uL
(4.8-10.8)
Hct 48.7 H %
(37.0-47.0)
MCHC 32.6 L g/dL
(33.0-37.0)
Plt Count 457 H 10^3/uL
(130-400)
MPV 10.5 H fL
(7.4-10.4)
Absolute Neuts (auto) 11.6 H 10^3/uL
(1.4-6.5)
Absolute Monos (auto) 0.7 H 10^3/uL
(0.1-0.6)
Neutrophils % 83.8 H %
(42.2-75.2)
Lymphocytes % 10.0 L %
(20.5-51.1)
D-Dimer 0.58 H ug/mlFEU
(0.00-0.50)
Glucose 104 H mg/dl
(70-99)
02/19/24 13:53
02/19/24 14:53
Vital Signs
Initial and Last Documented VS:
Initial Vital Signs
Pulse Resp BP Pulse Ox
105 25 150/53 96
02/19/24 11:38 02/19/24 11:38 02/19/24 11:38 02/19/24 11:38
Last Documented Vital Signs
Temp Pulse Resp BP Pulse Ox
97.9 F 115 36 168/75 89
02/19/24 11:48 02/19/24 16:30 02/19/24 16:30 02/19/24 16:30 02/19/24 16:30
<JORGE Merchant - Last Filed: 02/19/24 16:53>
MDM/Problems Addressed
Differential Diagnosis Includes:
Not limited to COPD exacerbation, PE, pneumonia bronchitis COVID viral
MDM/Problems Addressed:
As documented patient is a 8-year-old female history of COPD presents with worsening shortness of breath since this morning. Patient does wear O2 and is O2 dependent. On initial exam patient was minimally short of breath however became more short
of breath. She does have a history of anxiety and is anxious on exam. She is decreased throughout. Chest x-ray labs ordered and nebulized albuterol given along with Decadron.
1450: Radiology notified myself and ED physician of pneumothorax to right lung with minimal mediastinal shift suggesting a small tension component. We discussed results with patient and daughter at bedside. Patient very anxious does have history
anxiety.
ED physician did speak with pulmonary Dr. Glaser . I also spoke with interventional radiologist Dr. Ovidio Ackerman who will be able to take patient to IR to do procedure
Chronic conditions affecting care:
copd/anxiety
<JORGE Merchant - Last Filed: 02/19/24 16:53>
*Radiology
Radiology exam reviewed: radiology read reviewed
*Pulse Oximetry
Patient hypoxic: yes
*EKG
Interpreted by ED Provider?: Yes
Heart Rate: 107
Rate: tachycardiac
Ischemia: non-specific ST changes
*Critical Care Note
Total Time (30-74mins, 75-104mins- exclusive of procedures): Not Applicable
comment:
Critical care statement: A total of 30 minutes of critical care time was provided for this patient. This includes management of unstable vital signs, evaluation of the patient at bedside, reviewing the patient's pertinent medical records, discussion
with consultants, review of old EKGs and review of pertinent medical records. This time with separate from time utilized to perform the aforementioned documented procedures
ED Attending Note
<JORGE Merchant - Last Filed: 02/19/24 16:53>
-
Portions of this chart may have been created with voice recognition software.� Occasional wrong word or��sound alike� substitutions may have occurred due to the inherent limitations of voice recognition software.
<Matti Cordero MD - Last Filed: 02/19/24 15:16>
ED Attending Note
Patient seen and examined by attending physician: Yes
ED Attending Note:
I have seen and evaluated the patient with a [id number] encounter. I have spoken to the advance practicer provider and involved in the medical history, the physical exam, medical decision making.
Evaluation and management service: agree unless noted differently below.
Results interpretation: agree unless noted differently below.
Focused HPI: 88-year-old female with a past medical history of hypertension, hyperlipidemia, COPD who presents to the emergency department for evaluation of shortness of breath. Patient reports onset of symptoms this morning they have been
increasing since then. She reports significant associated anxiety. She reports some mild chest discomfort. Family concern for possible panic attack. No falls or trauma. No cough or fever/chills.
Physical exam: Awake alert, anxious appearing. Tachycardic and tachypneic. Pulse ox 89% on room air. Breath sounds diminished right side.
Medical Decision Makin-year-old female presents for evaluation of increasing shortness of breath associate with chest pain and anxiety. Exam as above. Send off labs: CBC and CMP, check chest x-ray. Check an EKG. Reassess after the above.
Chest x-ray shows moderate right-sided pneumothorax. Discussed with pulmonology�low threshold for chest tube, could treat with nonrebreather mask and repeat x-ray in an hour versus proceeding with pigtail chest tube. Will discuss with
interventional radiology.
Discharge Plan
Departure
Patient Disposition: Admit
Date of Disposition: 02/19/24
Time of Disposition: 16:24
Admit to: IMU
Admit to doctor: hospitalist
Presentation/result/management discussed w/ accepting MD/DO: Hospitalist
Condition: Fair
Covid-19: Negative COVID-19
Discharge Problem:
Pneumothorax
Prescriptions:
No Action
rosuvastatin 10 MG tablet
10 mg PO QPM
diltiazem HCl 180 mg Capsule,Extended Release 24 Hr
180 mg PO BID
losartan 50 mg Tablet
50 mg PO DAILY
mirtazapine 7.5 mg Tablet
7.5 mg PO HS
albuterol sulfate 90 mcg/actuation Hfa Aerosol Inhaler
2 puff INHALATION R Q6HPRN PRN (Reason: sob)
guaifenesin 600 mg Tablet Extended Release 12hr
600 mg PO Q12 7 Days Qty: 14 0RF
levofloxacin 750 mg tablet
750 mg PO Q24H Qty: 3 0RF
ipratropium-albuterol 0.5 mg-3 mg(2.5 mg base)/3 mL Solution For Nebulization
3 ml INHALATION R TID Qty: 0 0RF
prednisone 10 mg Tablet
See Rx Instructions .ROUTE .COMPLEX Qty: 30 0RF
Rx Instructions:
Take By Mouth:
40 mg daily x3 days, 30 mg daily x3 days,
20 mg daily x3 days, 10 mg daily x3 days.
Referrals:
Janak Maria Jr., DO [Family Provider] -
Interventions
Interventions:
*Risk Screen - Suicide Last Done: 02/19/24 11:44
*General Assessment Last Done: 02/19/24 11:44
*Neglect/Abuse Screening Last Done: 02/19/24 11:44
ED- Fall Risk Assessment Last Done: 02/19/24 11:44
ED- Cardiac Assessment Last Done: 02/19/24 11:44
ED- Pulmonary Assessment Last Done: 02/19/24 11:44
Discharge Date and Time
Print Language: SLOVAK
[2024-02-19 14:16] LABS: % Basophils 0.7 % (0-2); % Eosinophils 0.1 % (0-6); % Immature Granulocytes 0.3 % (0-0.5); % Monocytes 5.1 % (1.7-9.3); % Neutrophils 83.8 % (42.2-75.2); Absolute Basophils 0.1 10^3/uL (0-0.2); Absolute Lymphocytes 1.4 10^3/uL (1.2-3.4); Absolute Monocytes 0.7 10^3/uL (0.1-0.6); Absolute Neutrophils 11.6 10^3/uL (1.4-6.5); Hematocrit 48.7 % (37.0-47.0); Hemoglobin 15.9 g/dL (12.0-16.0); Mean Corp Hgb Conc. 32.6 g/dL (33.0-37.0); Mean Corpuscular Hgb 30.6 pg (27.0-31.0); Mean Corpuscular Volume 93.8 fL (81.0-99.0); Mean Platelet Volume 10.5 fL (7.4-10.4); Nucleated Red Blood Cells % 0 %; Platelet Count 457 10^3/uL (130-400); Red Blood Cell Count 5.19 10^6/uL (4.20-5.40); Red Cell Dist. Width 12.6 % (11.5-14.5); White Blood Cell Count 13.8 10^3/uL (4.8-10.8)
[2024-02-19 14:30] LABS: COVID-19 Antigen Negative (Negative); D-Dimer 0.58 ug/mlFEU (0.00-0.50)
[2024-02-19 15:14] LABS: ALT (SGPT) 20 U/L (0-35); AST (SGOT) 31 U/L (14-36); Albumin 3.8 g/dl (3.5-5.0); Alkaline Phosphatase 109 U/L (38-126); Blood Urea Nitrogen 14 mg/dl (7-17); Calcium 8.8 mg/dl (8.4-10.2); Carbon Dioxide 22 mmol/L (22-30); Chloride 107 mmol/L (98-107); Estimated Creatinine Clearance 46 ml/min; Glucose 104 mg/dl (70-99); Potassium 4.2 mmol/L (3.5-5.1); Sodium 143 mmol/L (135-145); Total Bilirubin 0.6 mg/dl (0.2-1.3); Total Protein 6.6 g/dl (6.3-8.2); eGFR > 60.00
--- NOTE | 2024-02-19 17:35 | IR.POSTOP ---
[facility] Post Procedure Note
-
Description of Findings:
Successful right chest tube placement.
--- NOTE | 2024-02-19 17:37 | HPS.HSE ---
Family Physician
-
Family Physician: Janak Maria Jr.
Chief Complaint
-
SOB
History of Present Illness
89 year old female, former smoker, with history of COPD on chronic home O2, HTN, HLD, anxiety, paroxysmal afib presented to the ED from [facility] with shortness of breath. Daughter present at bedside. Patient is too anxious to answer questions.
Daughter states that patient was doing fine until last night. 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 There is new onset of productive cough with whitish/yellow phlegm which started this morning. She denies CP, palpitations, swelling.
Denies history of HF, stroke, DM, no recent falls. Patient uses a rollator for ambulation.
Medical History
Past Medical History
Past Medical History: Reports Arrhythmia, HTN and Hypercholesterolemia
Past Surgical History: Reports Appendectomy
Social History
Tobacco: Former Smoker
Alcohol: None
Drug: None
Personal: Single
Living: Shelter
Employment: Retired
Family History
Family History: Not pertinent
Allergies / Home Medications
Allergies reflects when Allergies were last updated in [facility].
Home Medications with original date entered in [facility]
Allergy/Medication List:
Allergies
Allergy/AdvReac Type Severity Reaction Status Date / Time
No Known Allergies Allergy Verified 02/19/24 11:43
Home Medications
rosuvastatin 10 mg tablet 10 mg PO QPM High Cholesterol 05/18/09
diltiazem HCl 180 mg capsule,24 hr,extended release 180 mg PO BID Arrhythmia 12/20/22
losartan 50 mg tablet 50 mg PO DAILY Blood Pressure 12/20/22
albuterol sulfate 90 mcg/actuation aerosol inhaler 2 puff inhalation R Q6HPRN PRN sob 09/05/23
mirtazapine 7.5 mg tablet 7.5 mg PO HS 09/05/23
fluticasone propionate 50 mcg/actuation nasal spray,suspension 1 spray intranasal DAILY 02/19/24
guaifenesin 600 mg tablet, extended release 12 hr 600 mg PO [id number] PRN cough 02/19/24
ipratropium 0.5 mg-albuterol 3 mg (2.5 mg base)/3 mL nebulization soln 3 ml inhalation R Q6HPRN PRN sob 02/19/24
Review of Systems
-
History Source: Patient and Family
Respiratory: Reports Cough and Trouble Breathing
Psych: Reports Anxiety
Physical Exam
Vital Signs
Vital Signs
Temp Pulse Resp BP Pulse Ox
98.6 F 115 29 159/73 92
02/19/24 16:53 02/19/24 16:53 02/19/24 16:53 02/19/24 16:53 02/19/24 16:53
Physical Exam
General: Conversant and Other (elderly fragile female who appears very anxious)
HEENT: NormoCephalic, Anicteric and Other (dry mucous membrane )
Respiratory: Decreased Breath Sounds (right side )
Cardiac: S1/S2 and Murmur ( systolic on left upper sternal border)
GI: Soft, Non Tender and Non Distended
Musculoskeletal: No Edema
Skin: Other (purplish discoloration potentially due to venous stasis)
Neuro: AO x 3
Psych: Anxious (extremely )
Laboratory Results
-
02/19/24 13:53
02/19/24 14:53
Laboratory Results
Total Bilirubin 0.6 mg/dl (0.2-1.3) 02/19/24 14:53
AST 31 U/L (14-36) 02/19/24 14:53
ALT 20 U/L (0-35) 02/19/24 14:53
Alkaline Phosphatase 109 U/L (38-126) 02/19/24 14:53
Data Reviewed
-
Diagnostic Radiology: Report Reviewed by me and Discussed with Physician
CT Scan: Report Reviewed by me
Lab Data: Labs Reviewed by me and Discussed with Physician
Impression/Plan
-
IMPRESSION:
Pneumothorax on the right
Anxiety
Dehydration
Leukocytosis
89 year old female presented with SOB. She is hemodynamically stable, O2 sat 91 on 3 L, hypertensive and tachycardic assuming that could possibly be because she is extremely anxious. She is taking deep breath while I was talking to her.
PLAN:
Pneumothorax on the right side
Hemodynamically stable, not hypoxic, BP and HR elevated assuming due to anxiety
Suspect due to long standing COPD causing rupture of air blebs present on the lung surface.
Consult IR
Plan for urgent chest tube placement with low suction
Plan for clamp trial for lung to expand. If the lung fails to expand then pleurectomy
Repeat CBC, BMP in am
Anxiety
Patient appears very anxious.
Will start oxycodone 5 mg and Ativan 0.5 mg PO
Tylenol as needed
Dehydration
IV fluids
Dry mucous membrane on PE
Leukocytosis
probably reactive
Will monitor WBC, temp curve
CODE STATUS - DNR
DVT ppx - Lovenox
DIET- regular
[2024-02-19] MEDS: NSS 1000 IV (17:58)
--- NOTE | 2024-02-19 19:00 | PTCARENOTE ---
Pt received from ED at 1900. Pt AAOX3, VSS, and pleasant and cooperative to plan of care. Pt oriented to room and callbell. Bed in lowest position and callbell within reach. Pt educated on importance of callbell use and pt expressed understanding.
Will continue with current plan of care.
[2024-02-19] MEDS: DUONEB 3 ML INH (19:44)
[2024-02-19] MEDS: ATIVAN 0.5 MG PO (20:11)
[2024-02-19] MEDS: MUCINEX 600 MG PO (20:11)
[2024-02-19] MEDS: CRESTOR 10 MG PO (20:11)
[2024-02-19] MEDS: LOVENOX 40 MG SC (20:12)
[2024-02-19] MEDS: CARDIZEM CD 180 MG PO (20:13)
[2024-02-19] MEDS: REMERON 7.5 MG PO (22:15)
[2024-02-20 03:27] VITALS: BP 114/59
[2024-02-20] MEDS: NSS 1000 IV ×2 (06:20→18:08)
[2024-02-20] MEDS: TYLENOL 650 MG PO (06:26)
[2024-02-20] MEDS: CARDIZEM CD 180 MG PO ×2 (07:23→19:52)
[2024-02-20] MEDS: MUCINEX 600 MG PO ×2 (07:23→20:19)
[2024-02-20] MEDS: ATIVAN 0.5 MG PO (07:24)
[2024-02-20] MEDS: COZAAR 50 MG PO (07:24)
[2024-02-20] MEDS: DUONEB 3 ML INH ×3 (07:33→19:30)
[2024-02-20 08:28] VITALS: BP 119/61
[2024-02-20 10:53] VITALS: BMI 18.2
[2024-02-20 11:41] VITALS: BP 92/40
--- NOTE | 2024-02-20 11:45 | PTCARENOTE ---
Addendum entered by Agnes Cardoza RN 02/20/24 13:01:
02/19- NSS increased to 100ml/hr as per Physician Order.
Original Note:
02/19- Patient's BP=92/40 with HR=92. Patient is AAOX3 but scattered thinking, forgetful, but denies any dizziness or weakness while sitting. +PulsesX4; 4 extremities cool to touch but Cap refill<2secX4. Notified Physician.
--- NOTE | 2024-02-20 13:51 | W.PN.HOSP.TC ---
Today's Communication/Plan
-
Pending repeat CXR after clamp trial.
Assessment / Plan
Assessment / Plan
89 year old female presented with SOB. She is hemodynamically stable, O2 sat 91 on 3 L, hypertensive and tachycardic assuming that could possibly be because she is extremely anxious. She is taking deep breath while I was talking to her.
PLAN:
Pneumothorax on the right side
Hemodynamically stable, not hypoxic, BP and HR elevated assuming due to anxiety
Suspect due to long standing COPD causing rupture of air blebs present on the lung surface.
Chest tube placed, clamp trial in the afternoon with repeat CXR @4pm.
Repeat CBC, BMP still pending.
Anxiety
Patient appears very anxious.
Will start oxycodone 5 mg and Ativan 0.5 mg PO
Tylenol as needed
Dehydration
IV fluids
Dry mucous membrane on PE
Leukocytosis
probably reactive
Will monitor WBC, afebrile overnight
CODE STATUS - DNR
DVT ppx - Lovenox
DIET- regular
Anticipated Discharge: 24 - 48 hours
Subjective/Interval History
-
No acute events overnight. Patient reports improvement in shortness of breath & thoroughly enjoys the incentive spirometer.
Objective Data
-
Vital Signs:
Vital Signs
Temp Pulse Resp BP Pulse Ox
98 F 92 16 92/40 94
02/20/24 11:41 02/20/24 11:41 02/20/24 11:41 02/20/24 11:41 02/20/24 11:41
I&O
02/19/24 02/20/24 02/21/24
06:59 06:59 06:59
Intake Total 50 / 50
Output Total 6 / 6
Balance 50 / 50 -6 / -6
Review of Systems
-
History Source: Patient
All other systems: Reviewed and negative
Constitutional: Reports No Symptoms
EENT: Reports No Symptoms Reported
Respiratory: Reports Trouble Breathing (Improved from yesterday)
Cardiac: Reports No Symptoms
Abdomen/GI: Reports No Symptoms
Breast: Reports No Symptoms
Genitourinary: Reports No Symptoms
Musculoskeletal: Reports No Symptoms
Skin: Reports No Symptoms
Neuro: Reports No Symptoms
Endocrine: Reports No Symptoms
Physical Exam
-
General: Well Developed, No Apparent Distress and Comfortable
HEENT: Normocephalic, Atraumatic, Moist Mucous Membranes, Anicteric, [place] Conjunctivae and PERRLA
Respiratory: Clear to Auscultation
Cardiac: Regular Rhythm and S1/S2
GI: Soft, Nontender, Nondistended and Normal Bowel Sounds
Musculoskeletal: No Clubbing, No Cyanosis and No Edema
Neuro: Awake, Alert and Oriented
[2024-02-20 15:54] VITALS: BP 105/46
[2024-02-20] MEDS: CRESTOR 10 MG PO (16:24)
[2024-02-20] MEDS: LOVENOX 40 MG SC (16:24)
[2024-02-20 20:15] VITALS: BP 102/47
[2024-02-20] MEDS: REMERON 7.5 MG PO (22:40)
[2024-02-20 23:30] VITALS: BP 101/47
[2024-02-21 03:53] VITALS: BP 125/60
[2024-02-21] MEDS: NSS 1000 IV ×2 (04:07→15:44)
--- NOTE | 2024-02-21 07:11 | CM ---
met with patient at bedside and spoke with son pipo to confirm information received.patient lives in [place] at [facility].she ambulates I or uses a walker at times.she is I with her adl.she has had vn through [facility] when needed.she has no hx of ip
rehab.
PCP is dr ny and she uses [facility] for meds which are delivered to [facility].
PMH: copd on 2-3 liters nc at home,htn,htn,anxiety/depression,
patient is adm with pneumothorax from air bleb.ir placed right chest tube,on ivf, cxr shows decreased ptx,,on duonebs.plan is clamp trial of chest tube.await pt/ot eval.Plan is dc back to [facility] when stable.she will need vn vs need for ip rehab
[2024-02-21 07:40] VITALS: BP 112/51
[2024-02-21] MEDS: DUONEB 3 ML INH ×3 (08:13→19:56)
[2024-02-21 08:27] LABS: Hematocrit 37.2 % (37.0-47.0); Hemoglobin 12.1 g/dL (12.0-16.0); Mean Corp Hgb Conc. 32.5 g/dL (33.0-37.0); Mean Corpuscular Hgb 29.7 pg (27.0-31.0); Mean Corpuscular Volume 91.4 fL (81.0-99.0); Mean Platelet Volume 9.9 fL (7.4-10.4); Platelet Count 359 10^3/uL (130-400); Red Blood Cell Count 4.07 10^6/uL (4.20-5.40); Red Cell Dist. Width 13.1 % (11.5-14.5); White Blood Cell Count 25.6 10^3/uL (4.8-10.8)
[2024-02-21] MEDS: CARDIZEM CD 180 MG PO ×2 (08:48→21:03)
[2024-02-21] MEDS: MUCINEX 600 MG PO ×2 (08:48→21:03)
[2024-02-21] MEDS: COZAAR 50 MG PO (08:49)
[2024-02-21] MEDS: ATIVAN 0.5 MG PO (08:49)
[2024-02-21 09:27] LABS: % Basophils 0.1 % (0-2); % Immature Granulocytes 0.7 % (0-0.5); % Lymphocytes 4.8 % (20.5-51.1); % Monocytes 4.8 % (1.7-9.3); % Neutrophils 89.6 % (42.2-75.2); Absolute Immature Granulocytes 0.2 10^3/uL (0-0.05); Absolute Lymphocytes 1.2 10^3/uL (1.2-3.4); Absolute Monocytes 1.2 10^3/uL (0.1-0.6); Nucleated Red Blood Cells % 0 %
--- NOTE | 2024-02-21 09:46 | W.PN.HOSP.TC ---
Today's Communication/Plan
-
Removal of chest tube
No abx for now with bump in WBC as patient is afebrile
Monitor WBC and temp
Hold lovenox for today due to drop in HB.
Switch to SCD.
Assessment / Plan
Assessment / Plan
89 year old female presented with SOB. She is hemodynamically stable, O2 sat 91 on 3 L, hypertensive and tachycardic assuming that could possibly be because she is extremely anxious. She is taking deep breath while I was talking to her.
PLAN:
Pneumothorax on the right side
Hemodynamically stable, not hypoxic, BP and HR elevated assuming due to anxiety
Suspect due to long standing COPD causing rupture of air blebs present on the lung surface.
Plan to remove the chest tube .
CXR shows small apical right pneumothorax which has improved from the previous CXR
Repeat CXR at 4 PM
Probably need a second opinion with pulmonology ?
Incentive spirometry
Anxiety
Patient appears very anxious.
Continue oxycodone 5 mg and Ativan 0.5 mg PO
Tylenol as needed
Dehydration
IV fluids
Dry mucous membrane on PE
Leukocytosis
Increased to 25>13. Afebrile, patient looks good, not sick.
probably reactive due to chest tube being placed causing inflammatory process and stress can also contribute it.
Will monitor WBC and temp curve. She was afebrile overnight.
If fever then might start on emperic abx. Hold for now.
Hypertension
Continue Losartan
HLD
Continue home rosuvastatin
COPD
Continue inhalers.
CODE STATUS - DNR
DVT ppx - Lovenox
DIET- regular
Anticipated Discharge: 24 - 48 hours
Subjective/Interval History
-
Date of Service: February 21, 2024
Objective Data
-
Labs:
Laboratory Results
02/21/24
08:10
WBC 25.6 H
Hgb 12.1 D
Hct 37.2
Plt Count 359 D
Vital Signs:
Vital Signs
Temp Pulse Resp BP Pulse Ox
98.5 F 80 20 112/51 95
02/21/24 07:40 02/21/24 08:18 02/21/24 08:18 02/21/24 07:40 02/21/24 08:18
I&O
02/20/24 02/21/24 02/22/24
06:59 06:59 06:59
Intake Total 50 / 50
Output Total 37 / 37
Balance 50 / 50 -37 / -37
[2024-02-21 11:05] VITALS: BP 108/65
--- NOTE | 2024-02-21 12:09 | PN.CDI ---
CDI
- -
CDI:
Physician Documentation Request
Admit Date: 02/19/24 18:18
Dear Doctor Junior,
Please review the following and provide your response in the progress notes.
Clinical Indicators:
Height: 5 ft 3 inches
Weight: 96 lbs
BMI: 17.1
02/19 notes 'reason for RD visit: BMI 18.1 underweight'
If possible, please provide an associated diagnosis related to the abnormal BMI, such as:
BMI < or = to 19
Underweight
Weight Loss
Cachectic
Anorexia
- BMI is not significant
- Other
Use of terms such as suspected, likely, concern for, or probable (associated with a specific diagnosis that is being evaluated, monitored, or treated as if it exists) are acceptable and can be coded in the inpatient setting, when documented at the
time of discharge.
Thank you,
Christina Blake RN, BSN
CDI Specialist
tiger text
Please use your independent medical judgment in providing your response.
--- NOTE | 2024-02-21 13:59 | CM ---
Addendum entered by Mary Ellen De 02/21/24 15:55:
Per patient and daughter, patient has home oxygen including portable and concentrator but patient and daughter do not remember the name of oxygen company. Patient is currently requiring 3 liters of oxygen.
Original Note:
Chart reviewed and marlys was admitted from [facility], patient would benefit from PT/OT to assist with discharge planning.
Plan; Await recommendations from PT/OT.
[2024-02-21 15:25] VITALS: BP 109/45
--- NOTE | 2024-02-21 15:27 | CON.PUL ---
Consultation
Consultation Request
Date/Time Consultation Requested: 02/21/2024 - 134
Date/Time Consultation Performed: 02/21/2024 - 1409
Requesting Provider: Dr. Hendrix
Performing Provider: Dr. Boland
Reason for Consultation: R-sided PTX
Medical History
-
Chief Complaint: SOB/anxiety
History of Present Illness:
88-year-old female former tobacco smoker (47-zrhh-sdig history, quit 7 years ago) with a past medical history of moderate COPD, bronchiectasis, panlobular emphysema, aortic stenosis, pulmonary hypertension, history of alcoholism,
hypertension/hyperlipidemia and history of nephrolithiasis who presents with SOB + anxiety. Patient lives at [facility]. She was given DuoNeb treatment at the facility and patient brought in with a suspected panic attack. She was on 15 L/min via
NRB and was very tense in the ER. She developed a productive cough on the morning of arrival. Initial vitals in the ER showed she was afebrile to 97.9 �F, tachycardic to 105 bpm, breathing at 25 breaths/min, BP 150/53 and saturating 97% on 4 L/min
nasal cannula. Labs showed leukocytosis to 13.8, Hb 15.9, and COVID antigen negative. Initial CXR showed moderate�large right-sided pneumothorax. There was suspected mediastinal shifting from right to left suggesting early tension component. She
was given DuoNebs in the ER, Decadron 10 mg + IVF with NS 0.9% x 1L. Pneumothorax persisted despite being on oxygen and chest tube was inserted by IR with improvement seen in right sided PTX. She is continue to be managed on the floor with chest
tube in place, and pulmonary service now consulted for additional management/recommendations.
When I saw the pt she was in bed in NAD. Chest tube has occasional airleak (level 1). She is on 3L/min NC. She feels well. Denies chest pain, KNIGHT, abd pain, N/V/f/c.
Of note, patient follows with us in the office with last visit on 01/10/2023 with JORGE Christy. She had previously followed with Dr. Coley with last visit with him in May 2021. She has a history of a RUL 4 cm lung mass which prior
PET scan in January 2019 did not suggest malignancy. She also has a history of Pseudomonas pneumonia back in 2018 as well as COPD. She is continued on DuoNebs. Also has a history of chronic cough, calcified pleural plaque, bronchiectasis with
history of mucous plugging and tobacco abuse, quit at age 81 with 70-fdfu-mwib history. Last perimetry was in October 2022 showing moderate COPD with post-BD FEV1: 0.82 L / 53%. There was a 35% improvement in the small lung aguilera.
PMHx: Hypertension, hyperlipidemia, history of alcoholism, moderate pulmonary hypertension, aortic stenosis, right upper lobe lung mass (4 cm), COPD/emphysema, bronchiectasis (lower lobe predominant), basal cell carcinoma (cheek), colonic polyps,
nephrolithiasis, history of childhood pneumonia
PSHx: Cholecystectomy, appendectomy, tonsillectomy
Past Medical History
Past Medical History: Other (Above as per HPI)
Past Surgical History: Other (Above as per HPI)
Social History
Tobacco: Former Smoker (56-yyha-yqhw history, quit at age 81)
Alcohol: Former (Recovering alcoholic, sober since age 46)
Drug: None
Family History
Family History: CAD (Father + mother)
Allergies / Home Medications
Allergies
Allergy/AdvReac Type Severity Reaction Status Date / Time
No Known Allergies Allergy Verified 02/19/24 11:43
Home Medications
�Medication �Instructions �Recorded �Confirmed �Last Taken �Type
rosuvastatin 10 mg tablet 10 mg PO QPM High Cholesterol 05/18/09 02/19/24 03/19/23 History
diltiazem HCl 180 mg capsule,24 180 mg PO BID Arrhythmia 12/20/22 02/19/24 09/05/23 History
hr,extended release
losartan 50 mg tablet 50 mg PO DAILY Blood Pressure 12/20/22 02/19/24 09/05/23 History
albuterol sulfate 90 mcg/actuation 2 puff inhalation R Q6HPRN PRN sob 09/05/23 02/19/24 Unknown History
aerosol inhaler
mirtazapine 7.5 mg tablet 7.5 mg PO HS 09/05/23 02/19/24 Unknown History
fluticasone propionate 50 1 spray intranasal DAILY 02/19/24 02/19/24 Unknown History
mcg/actuation nasal
spray,suspension
guaifenesin 600 mg tablet, 600 mg PO [id number] PRN cough 02/19/24 02/19/24 Unknown History
extended release 12 hr
ipratropium 0.5 mg-albuterol 3 mg 3 ml inhalation R Q6HPRN PRN sob 02/19/24 02/19/24 Unknown History
(2.5 mg base)/3 mL nebulization
soln
Review of Systems
-
Unable to Obtain full review of systems at this time due to: Dementia
Vitals / Labs / Diagnostic Testing
Vital Signs
Temp Pulse Resp BP Pulse Ox
98.4 F 77 20 108/65 94
02/21/24 11:05 02/21/24 11:05 02/21/24 11:14 02/21/24 11:05 02/21/24 11:14
Lab Data
02/21/24 08:10
02/19/24 14:53
Microbiology
02/20/24 05:28 Nose MRSA Screen - Final
No Methicillin Resistant Staphylococcus aureus isolated.
Diagnostic Testing:
Physical Exam
-
HEENT: Normocephalic and Anicteric
Cardiovascular: S1/S2 and Peripheral Edema (negative)
Respiratory: Wheeze (negative), Rales (negative), Rhonchi (negative), Non-Labored Respirations and Other (Right sided chest tube on -[id number] suction)
GI: Soft, Non Distended, Non Tender and Normal Bowel Sounds
Neurology: Awake and Alert
Skin: Warm and Dry
General: Respiratory Distress (negative), Comfortable, Fever (negative) and Chills (negative)
Assessment
-
Assessment: 88-year-old female former tobacco smoker (19-uprn-rioh history, quit 7 years ago) with a past medical history of moderate COPD, bronchiectasis, panlobular emphysema, aortic stenosis, pulmonary hypertension, history of alcoholism,
hypertension/hyperlipidemia and history of nephrolithiasis who presents with SOB + anxiety. Patient lives at [facility]. She was given DuoNeb treatment at the facility and patient brought in with a suspected panic attack. She was on 15 L/min via
NRB and was very tense in the ER. She developed a productive cough on the morning of arrival. Initial vitals in the ER showed she was afebrile to 97.9 �F, tachycardic to 105 bpm, breathing at 25 breaths/min, BP 150/53 and saturating 97% on 4 L/min
nasal cannula. Labs showed leukocytosis to 13.8, Hb 15.9, and COVID antigen negative. Initial CXR showed moderate�large right-sided pneumothorax. There was suspected mediastinal shifting from right to left suggesting early tension component.
Pneumothorax persisted despite being on oxygen and chest tube was inserted by IR with improvement seen in right sided PTX. She is continue to be managed on the floor with chest tube in place, and pulmonary service now consulted for additional
management/recommendations.
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
polyps, nephrolithiasis, history of childhood pneumonia
Impression:
#Primary spontaneous pneumothorax on right hemithorax s/p chest tube (placed on 02/19/24) likely due to coughing in the setting of extensive centrilobular emphysema/COPD
#Leukocytosis, likely reactive
#Extensive panlobular emphysema/moderate COPD on DuoNebs as an outpatient
#Right upper lobe 4 cm mass, likely due to scarring (PET negative via PET/CT from 01/2019)
#Valvular heart disease with moderate aortic stenosis/mild�moderate MR + mild MS - all seen on TTE from 04/2023
#Moderate pulmonary hypertension (PASP: 47mmHg assuming RAP of 3mmHg via TTE from 04/2023)
#History of alcoholism
#Lower lobe predominant bronchiectasis
#Hypertension
#Hyperlipidemia
Plan:
- Right hemithorax apical pneumothorax is stable on negative suction but still with small airleak --> keep on -[id number] suction for now
- Repeat CXR tomorrow with plans to lower to -[id number] suction then --> if PTX stable and if there is no airleak by Saturday, then can plan to do water seal trial and hopefully remove chest tube the next morning with repeat CXR the next morning
- Maintain SpO2 88-95% with supplemental O2
- Duonebs TID with prn albtuerol MDI for breakthrough symptoms
- Recommend to not use incentive spirometer as this can exacerbate/worsen pneumothorax
- Replete electrolytes with K>4, Mg>2
- Maintain euglycemia with goal BG >100 and <180
- DVT ppx
Pulmonary service will continue to follow along. We will arrange for outpatient follow-up with our office considering last visit was in December 2022 with JORGE Christy.
Data:
CXR 02/19/2024: At least moderate size right-sided pneumothorax with possible minimal mediastinal shift right to left suggesting a small tension component
Total time spent today was 55 minutes for this encounter. Time includes reviewing laboratory test/imaging results, reviewing pertinent medical records, obtaining and reviewing medical history, performing an appropriate exam, ordering medications,
tests and procedures. Time also includes documentation of this encounter, coordinating patient care and communicating with other healthcare professionals. Total time does not include separately billed tests performed on this date of service.
[2024-02-21] MEDS: CRESTOR 10 MG PO (18:07)
[2024-02-21 19:28] VITALS: BP 134/58
[2024-02-21] MEDS: REMERON 7.5 MG PO (21:39)
[2024-02-21 23:41] VITALS: BP 101/76
[2024-02-22] MEDS: VENTOLIN NEBULES 2.5 MG INH (02:57)
[2024-02-22 03:17] VITALS: BP 128/62
[2024-02-22 06:29] LABS: % Basophils 0.1 % (0-2); % Eosinophils 0.2 % (0-6); % Immature Granulocytes 0.5 % (0-0.5); % Lymphocytes 5.9 % (20.5-51.1); % Monocytes 5.4 % (1.7-9.3); % Neutrophils 87.9 % (42.2-75.2); Absolute Immature Granulocytes 0.1 10^3/uL (0-0.05); Absolute Lymphocytes 1.4 10^3/uL (1.2-3.4); Absolute Monocytes 1.2 10^3/uL (0.1-0.6); Absolute Neutrophils 20.3 10^3/uL (1.4-6.5); Hematocrit 37.1 % (37.0-47.0); Hemoglobin 13.1 g/dL (12.0-16.0); Mean Corp Hgb Conc. 35.3 g/dL (33.0-37.0); Mean Corpuscular Hgb 31.5 pg (27.0-31.0); Mean Corpuscular Volume 89.2 fL (81.0-99.0); Mean Platelet Volume 9.8 fL (7.4-10.4); Nucleated Red Blood Cells % 0 %; Platelet Count 337 10^3/uL (130-400); Red Blood Cell Count 4.16 10^6/uL (4.20-5.40); Red Cell Dist. Width 13.2 % (11.5-14.5); White Blood Cell Count 23.1 10^3/uL (4.8-10.8)
[2024-02-22 06:47] LABS: Blood Urea Nitrogen 21 mg/dl (7-17); Calcium 9.1 mg/dl (8.4-10.2); Carbon Dioxide 25 mmol/L (22-30); Chloride 110 mmol/L (98-107); Estimated Creatinine Clearance 49 ml/min; Glucose 104 mg/dl (70-99); Potassium 4.1 mmol/L (3.5-5.1); Sodium 145 mmol/L (135-145); eGFR > 60.00
[2024-02-22 07:30] VITALS: BP 147/74
[2024-02-22] MEDS: DUONEB 3 ML INH ×2 (08:09→20:41)
--- NOTE | 2024-02-22 09:20 | W.PN.PUL3 ---
Today's Communication / Plan
-
Continue chest tube, raise suction to -[id number]
Repeat CXR this afternoon at 1300
Raise supplemental O2 to ventimask to help resorb PTX
Pain control
GOC discussion will continue throughout hospital stay and before any additional procedures as the patient/daughter may opt for hospice if she continues to worsen
Assessment
-
Assessment: 88-year-old female former tobacco smoker (40-rbzc-msrp history, quit 7 years ago) with a past medical history of moderate COPD, bronchiectasis, panlobular emphysema, aortic stenosis, pulmonary hypertension, history of alcoholism,
hypertension/hyperlipidemia and history of nephrolithiasis who presents with SOB + anxiety. Patient lives at [facility]. She was given DuoNeb treatment at the facility and patient brought in with a suspected panic attack. She was on 15 L/min via
NRB and was very tense in the ER. She developed a productive cough on the morning of arrival. Initial vitals in the ER showed she was afebrile to 97.9 �F, tachycardic to 105 bpm, breathing at 25 breaths/min, BP 150/53 and saturating 97% on 4 L/min
nasal cannula. Labs showed leukocytosis to 13.8, Hb 15.9, and COVID antigen negative. Initial CXR showed moderate�large right-sided pneumothorax. There was suspected mediastinal shifting from right to left suggesting early tension component.
Pneumothorax persisted despite being on oxygen and chest tube was inserted by IR with improvement seen in right sided PTX. She is continue to be managed on the floor with chest tube in place, and pulmonary service now consulted for additional
management/recommendations.
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
polyps, nephrolithiasis, history of childhood pneumonia
Impression:
#Primary spontaneous pneumothorax on right hemithorax s/p chest tube (placed on 02/19/24) likely due to coughing in the setting of extensive centrilobular emphysema/COPD
#Leukocytosis, likely reactive
#Extensive panlobular emphysema/moderate COPD on DuoNebs as an outpatient
#Right upper lobe 4 cm mass, likely due to scarring (PET negative via PET/CT from 01/2019)
#Valvular heart disease with moderate aortic stenosis/mild�moderate MR + mild MS - all seen on TTE from 04/2023
#Moderate pulmonary hypertension (PASP: 47mmHg assuming RAP of 3mmHg via TTE from 04/2023)
#History of alcoholism
#Lower lobe predominant bronchiectasis
#Hypertension
#Hyperlipidemia
Plan:
- Right hemithorax apical pneumothorax is now slightly worsened this AM while on negative suction and with occasional airleak (level 1) --> change suction to -[id number] suction, repeat CXR at 1300
- Maintain SpO2 88-95%
- Start supplemental O2 with ventimask for N2-washout to help resorb PTX
- Duonebs TID with prn albtuerol MDI for breakthrough symptoms
- Recommend to not use incentive spirometer as this can exacerbate/worsen pneumothorax
- Replete electrolytes with K>4, Mg>2
- Maintain euglycemia with goal BG >100 and <180
- DVT ppx
- I called the patient's daughter, Naty, and answered all her questions. I made her aware of the slightly worsening PTX this AM, and that the pt may need a larger chest tube if her PTX continues to worsen despite being on more negative
suctioning. The daughter says that the patient may not want a chest tube, and that hospice is being considered depending on how the course of her pneumothorax continues to play out. I will continue to update the daughter and will continue to
discuss GOC during this admission.
Pulmonary service will continue to follow along. We will arrange for outpatient follow-up with our office considering last visit was in December 2022 with JORGE Christy.
Data:
CXR 02/19/2024: At least moderate size right-sided pneumothorax with possible minimal mediastinal shift right to left suggesting a small tension component
Total time spent today was 35 minutes for this encounter. Time includes reviewing laboratory test/imaging results, reviewing pertinent medical records, obtaining and reviewing medical history, performing an appropriate exam, ordering medications,
tests and procedures. Time also includes documentation of this encounter, coordinating patient care and communicating with other healthcare professionals. Total time does not include separately billed tests performed on this date of service.
Subjective Data
-
Date of Service:
Date of Service: February 22, 2024
Chief Complaint: Pulmonary Follow Up
Subjective:
Pt seen this AM. Chest tube in place and set at -[id number] suction. Unfortunately, CXR this AM shows slight worsening of R-PTX. She is in NAD. On 3L/min.
Review of Systems
General: Other (negative unless mentioned above)
Objective Data
Data Reviewed
Vital Signs / I&O / Oxygen:
Vital Signs
Temp Pulse Resp BP Pulse Ox
97.4 F 90 18 147/74 92
02/22/24 07:30 02/22/24 08:12 02/22/24 08:12 02/22/24 07:30 02/22/24 08:12
Intake and Output
02/21/24 02/22/24 02/23/24
06:59 06:59 06:59
Intake Total 2039
Output Total 37 / 37 39 / 39
Balance -37 / -37 2000
SaO2 92
Nasal Cannula flow liters per 3
minute
Physical Exam
General: Respiratory Distress (negative), Comfortable, Chills (negative), Sweats (negative) and Other (Cachectic/frail appearing)
HEENT: Normocephalic and Anicteric
Cardiovascular: S1-S2 and Peripheral Edema (negative)
Respiratory: Wheeze (negative), Rhonchi (negative), Non-Labored Respirations and Other (Coarse breath sounds bilaterally)
GI: Soft, Non Distended, Non Tender and Normal Bowel Sounds
Neurology: Awake, Alert and Tremors (negative)
Skin: Warm, Dry and Jaundice (negative)
Labs/Micro/Reports
Lab Data
02/22/24 06:15
02/22/24 06:15
Microbiology
02/20/24 05:28 Nose MRSA Screen - Final
No Methicillin Resistant Staphylococcus aureus isolated.
[2024-02-22] MEDS: COZAAR 50 MG PO (09:47)
[2024-02-22] MEDS: CARDIZEM CD 180 MG PO ×2 (09:48→20:21)
[2024-02-22] MEDS: MUCINEX 600 MG PO ×2 (09:48→20:21)
[2024-02-22] MEDS: ATIVAN 0.5 MG PO (09:48)
[2024-02-22 11:05] VITALS: BP 129/61
--- NOTE | 2024-02-22 11:43 | W.PN.HOSP.TC ---
Today's Communication/Plan
-
Increase low wall suction to -30 cm
Repeat chest x-ray at 1 PM
Consider tube repositioning if not improving
Possible waterseal trial tomorrow
Assessment / Plan
Assessment / Plan
#Right pneumothorax s/p chest tube
-Secondary to bleb rupture in the context of severe COPD; has been HD stable over hospital stay
-Status post chest tube placed by IR, does not seem to be resolving with low wall suction
-Pulmonology is following, recommended -30 cm pressure and repeat chest x-ray this afternoon
-If continuing to worsen or not improving on Xray, will speak to IR about tube repositioning
-Avoid incentive spirometer until PTX is resolved
-Plan for waterseal trial when resolved
#Chronic hypoxemic and hypercapnic respiratory
#COPD without exacerbation
-Uses 2 to 3 L of oxygen at home chronically
-Home meds include DuoNeb, albuterol sulfate as needed
-Currently on 3 L of supplemental oxygen, comfortably
#Leukocytosis
-Likely reactive from steroid at admission, secondary to chest tube insertion
-WBC count has started to downtrend, no fevers and clinically looks well
-Will continue to trend CBC, temperature curve
-Low threshold for antibiotics if fever present
#Hypertension
-Home medications include losartan
-No known history of hypertensive systemic disease
-BP has been well-controlled while here
#Dyslipidemia
-Home medication includes rosuvastatin
-No known ASCVD history
# Anxiety
-Remains on Ativan 0.5 mg as needed
# Arrhythmia (?)
-Currently on diltiazem twice daily, documented for arrhythmia
-Has no known history of AF/AFL, not on anticoagulants
-Possibly chronic sinus tachycardia from her chronic respiratory failure
DVT prophylaxis: SCDs
Diet: Regular
CODE STATUS: DNR
Anticipated Discharge: 24 - 48 hours
Subjective/Interval History
-
Date of Service: February 22, 2024
Seen and examined at bedside. No acute events reported overnight.
AFVSS this morning. Remains on 3 L oxygen comfortably. Chest x-ray shows slight worsening to her right pneumothorax. Pulm planning to increase low wall suction pressure and repeat x-ray at 1 PM
She otherwise denies any acute complaints including chest pain, worsening SOB, cough or wheeze, fevers or chills, GI or urinary issues, abnormal bleeding or bruising, paresthesias or weakness
Objective Data
-
Labs:
Laboratory Results
02/22/24
06:15
WBC 23.1 H
Hgb 13.1
Hct 37.1
Plt Count 337
Sodium 145
Potassium 4.1
Chloride 110 H
Carbon Dioxide 25
BUN 21 H
Creatinine 0.5 L
Glucose 104 H
Calcium 9.1
Vital Signs:
Vital Signs
Temp Pulse Resp BP Pulse Ox
97.4 F 90 18 147/74 92
02/22/24 07:30 02/22/24 08:12 02/22/24 08:12 02/22/24 07:30 02/22/24 08:12
I&O
02/21/24 02/22/24 02/23/24
06:59 06:59 06:59
Intake Total 2039
Output Total 37 39 / 39
Balance -37 / -37 2000
Review of Systems
-
History Source: Patient
All other systems: Reviewed and negative
Physical Exam
-
General: No Apparent Distress, Comfortable, Conversant and Cachectic
HEENT: Normocephalic, Atraumatic, Moist Mucous Membranes and Anicteric
Respiratory: Clear to Auscultation, Non Labored Respirations and Decreased Breath Sounds (Slight, right apex); Negative Wheezes, Rales or Rhonchi
Cardiac: Regular Rhythm, S1/S2 and Murmur; Negative Rub, JVD or Gallop
GI: Soft, Nontender, Nondistended and Normal Bowel Sounds
Musculoskeletal: No Clubbing, No Cyanosis and No Edema
Skin: Warm, Dry and Normal Turgor; Negative Rash
Neuro: AO x 3, Nonfocal/Grossly Intact and Central Nerve's Intact
Data Reviewed
-
Diagnostic Radiology: Discussed with Physician
Labs: Labs Reviewed by me and Discussed with Patient
[2024-02-22 15:39] VITALS: BP 146/71
[2024-02-22] MEDS: CRESTOR 10 MG PO (17:43)
[2024-02-22 19:00] VITALS: BP 136/60
[2024-02-22] MEDS: TYLENOL 650 MG PO (20:22)
[2024-02-22] MEDS: REMERON 7.5 MG PO (22:42)
[2024-02-22 23:00] VITALS: BP 121/56
[2024-02-22] MEDS: ROXICODONE 5 MG PO (23:34)
[2024-02-23] VITALS (7 sets, daily range): BP systolic 99–145; BP diastolic 47–69; PULSE 87–96; O2SAT 96
[2024-02-23] MEDS: VENTOLIN NEBULES 2.5 MG INH (04:41)
[2024-02-23] MEDS: DUONEB 3 ML INH ×2 (07:57→21:43)
[2024-02-23 08:16] LABS: % Basophils 0.1 % (0-2); % Eosinophils 0.7 % (0-6); % Immature Granulocytes 0.3 % (0-0.5); % Lymphocytes 15.4 % (20.5-51.1); % Monocytes 9.9 % (1.7-9.3); % Neutrophils 73.6 % (42.2-75.2); Absolute Eosinophils 0.1 10^3/uL (0-0.7); Absolute Immature Granulocytes 0.1 10^3/uL (0-0.05); Absolute Lymphocytes 2.2 10^3/uL (1.2-3.4); Absolute Monocytes 1.4 10^3/uL (0.1-0.6); Absolute Neutrophils 10.7 10^3/uL (1.4-6.5); Hematocrit 43.2 % (37.0-47.0); Hemoglobin 14.4 g/dL (12.0-16.0); Mean Corp Hgb Conc. 33.3 g/dL (33.0-37.0); Mean Corpuscular Hgb 29.6 pg (27.0-31.0); Mean Corpuscular Volume 88.7 fL (81.0-99.0); Mean Platelet Volume 9.8 fL (7.4-10.4); Nucleated Red Blood Cells % 0 %; Platelet Count 375 10^3/uL (130-400); Red Blood Cell Count 4.87 10^6/uL (4.20-5.40); Red Cell Dist. Width 13.2 % (11.5-14.5); White Blood Cell Count 14.5 10^3/uL (4.8-10.8)
[2024-02-23] MEDS: CARDIZEM CD 180 MG PO ×2 (08:46→20:18)
[2024-02-23] MEDS: COZAAR 50 MG PO (08:47)
[2024-02-23] MEDS: MUCINEX 600 MG PO ×2 (08:47→20:18)
[2024-02-23] MEDS: ATIVAN 0.5 MG PO (08:47)
[2024-02-23 09:10] LABS: Blood Urea Nitrogen 16 mg/dl (7-17); Calcium 9.3 mg/dl (8.4-10.2); Carbon Dioxide 29 mmol/L (22-30); Chloride 103 mmol/L (98-107); Estimated Creatinine Clearance 49 ml/min; Glucose 91 mg/dl (70-99); Potassium 3.8 mmol/L (3.5-5.1); Sodium 144 mmol/L (135-145); eGFR > 60.00
--- NOTE | 2024-02-23 10:44 | W.PN.PUL3 ---
Today's Communication / Plan
-
Continue chest tube at -[id number]
Hospice evaluation is pending for tomorrow
In interim, continue supplemental O2 to ventimask to help resorb PTX
Avoid IS as this can exacerbate her PTX
Pain control
Considering the change in patient's goals of care with hospice consulted, no additional recommendations at this time. I will not order any additional CXRs, and please call us back if patient is not enrolled in hospice and wishes to continue with
medical treatment. In that case, would likely recommend upsizing chest tube given the waxing/waning nature of right PTX.
At this point, pulmonary service will now sign off. Please reconsult if there are any additional questions/concerns, or if patient's respiratory status deteriorates.
Assessment
-
Assessment: 88-year-old female former tobacco smoker ([id number] history, quit 7 years ago) with a past medical history of moderate COPD, bronchiectasis, panlobular emphysema, aortic stenosis, pulmonary hypertension, history of alcoholism,
hypertension/hyperlipidemia and history of nephrolithiasis who presents with SOB + anxiety. Patient lives at [facility]. She was given DuoNeb treatment at the facility and patient brought in with a suspected panic attack. She was on 15 L/min via
NRB and was very tense in the ER. She developed a productive cough on the morning of arrival. Initial vitals in the ER showed she was afebrile to 97.9 �F, tachycardic to 105 bpm, breathing at 25 breaths/min, BP 150/53 and saturating 97% on 4 L/min
nasal cannula. Labs showed leukocytosis to 13.8, Hb 15.9, and COVID antigen negative. Initial CXR showed moderate�large right-sided pneumothorax. There was suspected mediastinal shifting from right to left suggesting early tension component.
Pneumothorax persisted despite being on oxygen and chest tube was inserted by IR with improvement seen in right sided PTX. She is continue to be managed on the floor with chest tube in place, and pulmonary service now consulted for additional
management/recommendations.
Chronic conditions PATIENT INTAKE REPRESENTATIVE: Hypertension, hyperlipidemia, history of alcoholism, pulmonary hypertension, aortic stenosis, right upper lobe lung mass (4 cm), COPD/emphysema, bronchiectasis (lower lobe predominant), basal cell carcinoma (cheek), colonic
polyps, nephrolithiasis, history of childhood pneumonia
Impression:
#Primary spontaneous pneumothorax on right hemithorax s/p chest tube (placed on 02/19/24) likely due to coughing in the setting of extensive centrilobular emphysema/COPD
#Leukocytosis, likely reactive
#Extensive panlobular emphysema/moderate COPD on DuoNebs as an outpatient
#Right upper lobe 4 cm mass, likely due to scarring (PET negative via PET/CT from 01/2019)
#Valvular heart disease with moderate aortic stenosis/mild�moderate MR + mild MS - all seen on TTE from 04/2023
#Moderate pulmonary hypertension (PASP: 47mmHg assuming RAP of 3mmHg via TTE from 04/2023)
#History of alcoholism
#Lower lobe predominant bronchiectasis
#Hypertension
#Hyperlipidemia
Plan:
- Right hemithorax apical pneumothorax slightly worsened on 02/21 and suction was raised to -[id number] ---> this AM, CXR again showed slight enlargement of R-PTX.
- Change position of patient and repeat CXR again this afternoon
- Would recommend continued radiographic surveillance, however family has discussed the patient's case and they are interested in pursuing hospice
- I will hold off on ordering any additional CXR for now given that it is not in line with patient's goals of care
- If further discussion is held and patient is not enrolled in hospice and wants to continue with medical treatment, would recommend upsizing chest tube given the waxing/waning nature of this right PTX
- Maintain SpO2 88-95%
- Continue supplemental O2 with ventimask for N2-washout to help resorb PTX
- Duonebs BID with prn albtuerol MDI for breakthrough symptoms
- Recommend to not use incentive spirometer as this can exacerbate/worsen pneumothorax
- Replete electrolytes with K>4, Mg>2
- Maintain euglycemia with goal BG >100 and <180
- DVT ppx
- On 02/21, I called the patient's daughter, Naty, and answered all her questions. I made her aware of the slightly worsening PTX, and that the pt may need a larger chest tube if her PTX continues to worsen despite being on more negative
suctioning. The daughter says that the patient may not want a chest tube, and that hospice is being considered depending on how the course of her pneumothorax continues to play out. Hospice is now consulted.
Considering the change in patient's goals of care with hospice consulted, no additional recommendations at this time. I will not order any additional CXRs, and please call us back if patient is not enrolled in hospice and wishes to continue with
medical treatment. In that case, would likely recommend upsizing chest tube given the waxing/waning nature of right PTX. At this point, pulmonary service will now sign off. Thank you for allowing us to be involved in the care of this patient.
Please reconsult if there are any additional questions/concerns, or if patient's respiratory status deteriorates.
Data:
CXR 02/19/2024: At least moderate size right-sided pneumothorax with possible minimal mediastinal shift right to left suggesting a small tension component
CXR 02/23/2024: Right chest tube again noted; Likely slightly increased small right apical pneumothorax.
Total time spent today was 35 minutes for this encounter. Time includes reviewing laboratory test/imaging results, reviewing pertinent medical records, obtaining and reviewing medical history, performing an appropriate exam, ordering medications,
tests and procedures. Time also includes documentation of this encounter, coordinating patient care and communicating with other healthcare professionals. Total time does not include separately billed tests performed on this date of service.
Subjective Data
-
Date of Service:
Date of Service: February 23, 2024
Chief Complaint: Pulmonary Follow Up
Subjective:
Patient seen and evaluated today at bedside. CXR shows slight worsening of right-sided pneumothorax. Chest tube is still on -30 cmH2O. Patient is in no acute distress, denying chest pain, KNIGHT, abdominal pain, SOB at rest, fevers or chills.
Review of Systems
General: Other (Negative unless mentioned above)
Objective Data
Data Reviewed
Vital Signs / I&O / Oxygen:
Vital Signs
Temp Pulse Resp BP Pulse Ox
98.1 F 90 18 125/59 90
02/23/24 15:23 02/23/24 15:23 02/23/24 15:23 02/23/24 15:23 02/23/24 15:23
Intake and Output
02/22/24 02/23/24 02/24/24
06:59 06:59 06:59
Intake Total 2039 840 / 840 150 / 150
Output Total 39 / 39 33 / 33
Balance 2000 840 / 840 117 / 117
SaO2 90
Nasal Cannula flow liters per 6
minute
Physical Exam
General: Respiratory Distress (negative), Comfortable, Chills (negative), Sweats (negative) and Other (Cachectic/frail appearing)
HEENT: Normocephalic and Anicteric
Cardiovascular: S1-S2 and Peripheral Edema (negative)
Respiratory: Wheeze (negative), Rhonchi (negative), Non-Labored Respirations, Chest Tube (Right hemithorax with occasional level 1 airleak seen in Pleur-evac waterseal chamber) and Other (Coarse breath sounds bilaterally)
GI: Soft, Non Distended, Non Tender and Normal Bowel Sounds
Neurology: Awake, Alert and Tremors (negative)
Skin: Warm, Dry and Jaundice (negative)
Labs/Micro/Reports
Lab Data
02/23/24 08:08
02/23/24 08:08
Microbiology
02/20/24 05:28 Nose MRSA Screen - Final
No Methicillin Resistant Staphylococcus aureus isolated.
--- NOTE | 2024-02-23 11:37 | W.PN.HOSP.TC ---
Today's Communication/Plan
-
Continue with chest tube to low wall suction
Repeat x-ray at [address] scan if x-ray not improved
Consider repositioning with IR tomorrow
Assessment / Plan
Assessment / Plan
#Right pneumothorax s/p chest tube
-Secondary to bleb rupture in the context of severe COPD; has been HD stable over hospital stay
-Status post chest tube placed by IR, has had some improvement with low wall suction since admission
-Pulmonology is following, recommended -30 cm pressure and to continue with serial chest x-ray
-X-ray this morning shows possible worsening, difficult to differentiate chronic blebs and pleural membrane
-Spoke with interventional radiology, recommended placing patient supine and repeating x-ray in the afternoon
-If afternoon x-ray does not show improvement, will obtain CT scan for better assessment of lung parenchyma
-IR to consider chest tube repositioning tomorrow
-Avoid incentive spirometer until PTX is resolved
-Plan for waterseal trial when resolved
#Chronic hypoxemic and hypercapnic respiratory
#COPD without exacerbation
-Uses 2 to 3 L of oxygen at home chronically
-Home meds include DuoNeb, albuterol sulfate as needed
-Currently on 3 L of supplemental oxygen, comfortably
#Leukocytosis
-Likely reactive from steroid at admission, secondary to chest tube insertion
-WBC count has started to downtrend, no fevers and clinically looks well
-White count now is downtrending significantly towards normal levels
#Hypertension
-Home medications include losartan
-No known history of hypertensive systemic disease
-BP has been well-controlled while here
#Dyslipidemia
-Home medication includes rosuvastatin
-No known ASCVD history
# Anxiety
-Remains on Ativan 0.5 mg as needed
# Arrhythmia (?)
-Currently on diltiazem twice daily, documented for arrhythmia
-Has no known history of AF/AFL, not on anticoagulants
-Possibly chronic sinus tachycardia from her chronic respiratory failure
DVT prophylaxis: SCDs
Diet: Regular
CODE STATUS: DNR
Anticipated Discharge: 24 - 48 hours
Subjective/Interval History
-
Date of Service: February 23, 2024
Seen and examined at the bedside. No acute events reported overnight. AFVSS this morning with adequate SpO2 on baseline 3 L oxygen.
She states she feels well today. Denies chest pain, shortness of breath, fevers or chills, nausea, vomiting, diarrhea, urinary issues, abnormal bleeding or bruising, paresthesias or weakness.
Her x-ray this morning seems to show slight worsening of her pneumothorax however breath sounds are adequate, does seem to be some lung markings peripherally in the scan. I spoke with interventional radiology concerning whether her tube needed to
be repositioned. IR mentioned that it is difficult to assess if the pneumothorax is reapproximated, with chronic blebs obscuring the picture. Recommended placing the patient supine to help with reapproximation of the pleural membrane. Will
consider a CT scan if next chest x-ray does not show improvement.
Objective Data
-
Labs:
Laboratory Results
02/23/24
08:08
WBC 14.5 H
Hgb 14.4
Hct 43.2
Plt Count 375
Sodium 144
Potassium 3.8
Chloride 103
Carbon Dioxide 29
BUN 16
Creatinine 0.6
Glucose 91
Calcium 9.3
Vital Signs:
Vital Signs
Temp Pulse Resp BP Pulse Ox
97.5 F 81 16 143/69 95
02/23/24 11:22 02/23/24 11:22 02/23/24 11:22 02/23/24 11:22 02/23/24 11:22
I&O
02/22/24 02/23/24 02/24/24
06:59 06:59 06:59
Intake Total 2040 / 2040 840 / 840
Output Total
Balance 2000 840 / 840 -33
Review of Systems
-
History Source: Patient
All other systems: Reviewed and negative
Physical Exam
-
General: No Apparent Distress, Comfortable and Cachectic; Negative Respiratory Distress
HEENT: Normocephalic, Atraumatic and Moist Mucous Membranes
Respiratory: Clear to Auscultation, Crackles (Bilateral bases, dry) and Non Labored Respirations; Negative Wheezes, Rales or Accessory Resp Muscle Use
Cardiac: Regular Rhythm, S1/S2 and Murmur; Negative Rub, JVD or Gallop
GI: Soft, Nontender, Nondistended and Normal Bowel Sounds
Musculoskeletal: No Clubbing, No Cyanosis and No Edema
Skin: Warm and Dry; Negative Rash
Neuro: AO x 3, Nonfocal/Grossly Intact and Central Nerve's Intact
Data Reviewed
-
Diagnostic Radiology: Report Reviewed by me, Discussed with Physician and Discussed with Patient
Labs: Labs Reviewed by me and Discussed with Patient
--- NOTE | 2024-02-23 13:17 | W.PN.UPDATE ---
Update Note
Progress Note Update
I just spoke extensively with the patient's daughter Naty and other family members in regards to the patient's condition. They mention that she is at peace, especially after the recent loss of her . They mention that she is expressed
desire to not be repeatedly in and out of the hospital, her and her family recognized that the likelihood of this occurring is high even if her pneumothorax resolves.
At this time we will place a consult for hospice, begin Roxanol as needed for air hunger or pain.
We will forego any repeat CT scan or tube adjustments for now for the sake of comfort.
I have spoken with pulmonology and interventional radiology to update them on this change of plan
Hospitalist consult entered
--- NOTE | 2024-02-23 13:30 | PTCARENOTE ---
Drainage in pleura-vac container found to be shifted inside container. Chest tube continues to work with any apparent issue, set to continuous suction at 30. No air leak noted. Dr. Kahn notified, no new orders at this time. Patient is comfortable
and without distress. Will closely monitor.
--- NOTE | 2024-02-23 13:58 | CM ---
Spoke with patient bedside with daughter.
Daughter Naty will be primary contact, brother is going away.
Family interested in hospice.
Per daughter father a week ago.
Referral via [facility] and [facility].
Per poultry hatchery manager, she will call patients family today and see in am.
Plan: Hospice eval in am.
[2024-02-23] MEDS: ROXANOL ORAL CONCENTRATE 10 MG PO (15:14)
--- NOTE | 2024-02-23 16:11 | HOSPNOTE ---
Spoke with the patients daughter Naty this afternoon. Hospice services and philosophy was explained. She understands the patient does not meet criteria for GIP at this time. When the patient is stable enough to be discharged home she would like
Hospice at home.
[2024-02-23] MEDS: CRESTOR 10 MG PO (18:31)
[2024-02-23] MEDS: ROXICODONE 5 MG PO (20:17)
[2024-02-23] MEDS: REMERON 7.5 MG PO (20:18)
[2024-02-24 06:41] VITALS: BP 121/58
[2024-02-24 07:06] LABS: % Basophils 0.3 % (0-2); % Immature Granulocytes 0.6 % (0-0.5); % Lymphocytes 10.2 % (20.5-51.1); % Monocytes 9.6 % (1.7-9.3); % Neutrophils 78.3 % (42.2-75.2); Absolute Eosinophils 0.1 10^3/uL (0-0.7); Absolute Immature Granulocytes 0.1 10^3/uL (0-0.05); Absolute Lymphocytes 1.5 10^3/uL (1.2-3.4); Absolute Monocytes 1.4 10^3/uL (0.1-0.6); Absolute Neutrophils 11.5 10^3/uL (1.4-6.5); Hematocrit 43.7 % (37.0-47.0); Hemoglobin 15.1 g/dL (12.0-16.0); Mean Corp Hgb Conc. 34.6 g/dL (33.0-37.0); Mean Corpuscular Hgb 31.1 pg (27.0-31.0); Mean Corpuscular Volume 89.9 fL (81.0-99.0); Mean Platelet Volume 10.7 fL (7.4-10.4); Nucleated Red Blood Cells % 0 %; Platelet Count 315 10^3/uL (130-400); Red Blood Cell Count 4.86 10^6/uL (4.20-5.40); Red Cell Dist. Width 13.3 % (11.5-14.5); White Blood Cell Count 14.6 10^3/uL (4.8-10.8)
[2024-02-24] MEDS: ATIVAN 0.5 MG PO (07:56)
[2024-02-24] MEDS: COZAAR 50 MG PO (07:56)
[2024-02-24] MEDS: MUCINEX 600 MG PO (07:56)
[2024-02-24] MEDS: CARDIZEM CD 180 MG PO (07:56)
[2024-02-24] MEDS: ROXICODONE 5 MG PO (07:56)
[2024-02-24] MEDS: DUONEB 3 ML INH (08:07)
[2024-02-24 08:53] LABS: Blood Urea Nitrogen 26 mg/dl (7-17); Calcium 9.3 mg/dl (8.4-10.2); Carbon Dioxide 27 mmol/L (22-30); Chloride 104 mmol/L (98-107); Estimated Creatinine Clearance 36 ml/min; Glucose 70 mg/dl (70-99); Potassium 4.2 mmol/L (3.5-5.1); Sodium 143 mmol/L (135-145); eGFR > 60.00
--- NOTE | 2024-02-24 09:34 | W.PN.HOSP.TC ---
Addendum entered and electronically signed by Abilio Rios MD 02/24/24 15:39:
I saw and examined the patient.
The WATER INSPECTOR or PA's note was reviewed and I agree with the note.
Late documentation.
Comment:
I personally performed a history and physical exam of the patient and discussed management with the resident. I reviewed the resident's note and agree with the documented findings and plan of care HPI/CC except for changes in documentation.
seen with daughter at bed side
88-year-old female with history of advanced COPD Admitted with pneumothorax on the right side.Patient has a chest tube and she does not want the tube anymore and wants to go home. Pt and family requested Hospice and she is accepted to Hospice for
advanced COPD and Spontaneous pneumothorax.Plan is to remove chest tube and place the patient on comfort measures. Medicines for comfort only ordered other medicines were stopped.
Daughter agrees wit the plan
IR consulted for CT removal.
D/W blow torch burner
D/W RN
D/W Bowstring Maker
Time spent over 50 min
Original Note:
Today's Communication/Plan
-
Family and patient perusing hospice care for advanced COPD now with right pneumothorax. Plan is to remove the chest tube, see how the patient does after the removal of the chest tube. Comfort measures for now. IR scheduled at 3 pm for tube removal
I had an extensive conversation with patient's daughter and she states that patient wants to be in peace and does not want to be in and out of the hospital. Daughter was emotional however she understands and wants her mom to be at peace.
Will order end of life care measures and discontinue few medications.
Assessment / Plan
Assessment / Plan
PLAN:
Pneumothorax on the right side
Hemodynamically stable, not hypoxic, BP and HR elevated assuming due to anxiety
Suspect due to long standing COPD causing rupture of air blebs present on the lung surface.
Family and patient perusing hospice care for advanced COPD now with pneumothorax.
Plan is to remove the chest tube, see how the patient does after the removal of the chest tube.
Comfort measures for now. IR scheduled at 3 pm for tube removal
I had an extensive conversation with patient's daughter and she states that patient wants to be in peace and does not want to be in and out of the hospital. Patient states ' I want to go home'.
Discussed with CM, supervisor hot strip mill, and Dr Rios.
Will only continue comfort medications.
End of life care
Anxiety
Appears calm today.
Dehydration-- resolved
IV fluids
Dry mucous membrane on PE
Leukocytosis
Decreased to 14.6
Will continue to monitor wbc and temp curve
Hypertension
Discontinue Losartan
HLD
Discontinue home rosuvastatin
Arrhythimia
It is questionable
Will continue diltiazem ? not sure as the patient is hospice care now
COPD
Continue inhalers.
Anticipated Discharge: 24 - 48 hours
Subjective/Interval History
-
Date of Service: February 24, 2024
Patient is more fatigue since yesterday. She is sleeping on the chair. No SOB or CP.
Objective Data
-
Labs:
Laboratory Results
02/24/24 02/24/24
06:03 07:54
WBC 14.6 H
Hgb 15.1
Hct 43.7
Plt Count 315
Sodium Cancelled 143
Potassium Cancelled 4.2
Chloride Cancelled 104
Carbon Dioxide Cancelled 27
BUN Cancelled 26 H
Creatinine Cancelled 0.8
Glucose Cancelled 70
Calcium Cancelled 9.3
Vital Signs:
Vital Signs
Temp Pulse Resp BP Pulse Ox
98.4 F 79 16 121/58 94
02/24/24 06:41 02/24/24 06:41 02/24/24 08:11 02/24/24 06:41 02/24/24 08:11
I&O
02/23/24 02/24/24 02/25/24
06:59 06:59 06:59
Intake Total 840 / 840 150 / 150
Output Total
Balance 840 / 840 117 / 117 -10 / -10
Review of Systems
-
History Source: Patient and Family
All other systems: Reviewed and negative (except mentioned )
Constitutional: Reports Fatigue
Physical Exam
-
General: Other (appears tired, sleepy)
HEENT: Normocephalic and Atraumatic
Respiratory: Clear to Auscultation
Cardiac: Irregular Rhythm and Murmur (systolic )
GI: Soft, Nontender and Nondistended
Musculoskeletal: No Edema
Neuro: Awake, Alert and Oriented
Psych: Calm
Data Reviewed
-
Labs: Labs Reviewed by me and Discussed with Physician
--- NOTE | 2024-02-24 12:04 | CM ---
Chart reviewed and residential case manager spoke with patient and patient's daughter today and they are still deciding on plan for patient, they want patient to be comfortable, with no pain or anxiety. They were hoping for [facility] hospice however they are waiting
for update from [facility] on plan.
Plan; To follow with patient progress for possible GIP admission.
--- NOTE | 2024-02-24 13:00 | PTCARENOTE ---
Report called to [address] [place] [address] nurse So. Will be transported in bed.
--- NOTE | 2024-02-24 13:02 | HOSPNOTE ---
Spoke with daughter and spoke about hospice and the philosophy. The plan is to move patient to [facility], IR was called and the chest tube will be removed this afternoon bedside the order has been placed. Comfort medications will be ordered and patient
will continue to be assessed daily for inpatient criteria. The patient may decline quickly after the removal of the chest tube. Will continue to support family. Went to [facility] and gave report. Family in agreement with plan. Case management and
Attending aware and in agreement.
--- NOTE | 2024-02-24 13:57 | CHAP ---
Emotional and spiritual support provided for Neha and her daughter. 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 Prayer blanket given. Will follow.
[2024-02-24 14:09] VITALS: BP 92/38
--- NOTE | 2024-02-24 14:14 | PTCARENOTE ---
Addendum entered by So Nolan RN 02/24/24 18:12:
14 amharic reina placed for end of life care-dark yellow urine. pt tolerated insertion- chest tube taken out by IR at bedside. per protocol at 1755 pt started on step 1 morphine gtt for end of life dyspnea and pain. going through pt L arm IV access
site. family at bedside and patient daughter staying overnight. prn robinul and ativan given per prn orders see mar for proper charting.
Original Note:
pt transferred from 4th floor to this afternoon via hospital bed. pt now comfort care. R chest tube clamped, plan to take out at bedside this afternoon. pt daughter at bedside. pt 91% on 4L. pt hypotensive with bp of 92/38. afebrile.
[2024-02-24] MEDS: DILAUDID 0.5 MG IV (14:19)
--- NOTE | 2024-02-24 15:09 | CHAP ---
Addendum entered by Aliya Zamora 02/24/24 15:21:
Fr. Meyer is on his way.
Original Note:
Geothermal Heat Pump Machinist request relayed to Fr. Meyer, Saturday . Awaiting call back.
[2024-02-24] MEDS: MORPHINE SULFATE 1 MG IV ×3 (15:15→17:15)
[2024-02-24] MEDS: TRANSDERM-SCOP 1 PATCH TRANSDERM (15:16)
[2024-02-24] MEDS: NSS (PRESERVATIVE FREE) 0.5 ML IV (16:09)
[2024-02-24] MEDS: ATIVAN 1 MG IV (16:10)
--- NOTE | 2024-02-24 16:16 | PN.IRAD.UPD ---
Update Note - IRAD
- -
went bedside at 1615 to remove patients right sided chest tube. prepped and draped area, removed tube, and dressed. no complaints from patient. ap
[2024-02-24] MEDS: ROBINUL 0.2 MG IV ×2 (17:26→22:19)
[2024-02-24] MEDS: MORPHINE 100 IV (17:51)
[2024-02-24 19:23] VITALS: BP 104/58
[2024-02-24] MEDS: DUONEB INH (19:27)
[2024-02-24] MEDS: REMERON PO (21:37)
--- NOTE | 2024-02-25 05:11 | W.PN.DEATH ---
Pronouncement of
-
Called to see patient to pronounce.
No spontaneous heart tones or respirations noted.
Patient not responsive to verbal stimuli.
Patient is pronounced .
Time of : 03:40
Date of : 02/25/24
Family Notified: Yes
--- NOTE | 2024-02-25 06:01 | PTCARENOTE ---
Pt's daughter approached the nurses station, states she believes her mother has passed. Entered room to pt without spontaneous heart tones or respirations. Covering BIOANALYST notified, responded bedside to pronounce. [facility] contacted per protocol.
Pt's family remains at the bedside, emotional support provided.
[2024-02-25] MEDS: DUONEB INH (07:31)
--- NOTE | 2024-02-25 09:35 | W.PN.HOSP.TC ---
Today's Communication/Plan
-
Patient this morning at 3:40am on 02/25/24.
I talked to patient's daughter and son, emotional support given to the family.
Assessment / Plan
Assessment / Plan
PLAN:
Pneumothorax on the right side
Hemodynamically stable, not hypoxic, BP and HR elevated assuming due to anxiety
Suspect due to long standing COPD causing rupture of air blebs present on the lung surface.
Family and patient perusing hospice care for advanced COPD now with pneumothorax.
Plan is to remove the chest tube, see how the patient does after the removal of the chest tube.
Comfort measures for now. IR scheduled at 3 pm for tube removal
I had an extensive conversation with patient's daughter and she states that patient wants to be in peace and does not want to be in and out of the hospital. Patient states ' I want to go home'.
Discussed with CM, [employer], and Dr Rios.
Will only continue comfort medications.
End of life care
Anxiety
Appears calm today.
Dehydration-- resolved
IV fluids
Dry mucous membrane on PE
Leukocytosis
Decreased to 14.6
Will continue to monitor wbc and temp curve
Hypertension
Discontinue Losartan
HLD
Discontinue home rosuvastatin
Arrhythimia
It is questionable
Will continue diltiazem ? not sure as the patient is hospice care now
COPD
Continue inhalers.
Anticipated Discharge: Today
Objective Data
-
Vital Signs:
Vital Signs
Temp Pulse Resp BP Pulse Ox
98.8 F 109 13 104/58 86
02/24/24 19:23 02/24/24 19:23 02/24/24 19:23 02/24/24 19:23 02/25/24 01:52
I&O
02/24/24 02/25/24 02/26/24
06:59 06:59 06:59
Intake Total 150 / 150
Output Total 33 / 33 310 / 310
Balance 117 / 117 -309 / -309
--- NOTE | 2024-02-25 10:10 | HOSPNOTE ---
Came to room and family had left. I will call the daughter and give emotional support.
--- NOTE | 2024-02-25 10:16 | PTCARENOTE ---
Postmortem care provided by Kelsy compact assembler, foley and IV removed. Morphine gtt wasted in med room by this RN and production shift supervisor RN. [facility] notified by production shift supervisor RN. No belongings at patient's bedside.
--- NOTE | 2024-02-25 15:38 | W.DCSUMMARY ---
Discharge Summary
Discharge Data
Date of Admission: 02/19/24
Date of Discharge: 02/25/24
-
Pending Results: No
Hospital Course
Discharging Physician : Dr My Hendrix, Dr Abilio Vargas
Disposition : Home
Primary care physician : Unknown
Principal Discharge diagnosis :
Right side pneumothorax
Anxiety
Chronic Discharge diagnosis :
Long standing COPD
HTN
HLD
Hospital Course : 88 year old female with PMH HTN, HLD, anxiety, long standing COPD on home O2 presented to the ED with dyspnea. Patient was placed on a nonrebreather by EMS, felt better by time she came to the ED.� AFVSS on arrival with mild
sinus tachycardia and SpO2 96% on 10 L via nonrebreather.� Labs showed WBC 13.8, platelet 457 but otherwise noncontributory.� Chest x-ray showed moderate-sized right pneumothorax with mediastinal shift to the right consistent with tension
physiology.� IR was consulted for chest tube placement. Repeated CXR was done which showed persistent right apical pneumothorax. Pulmonology was consulted and they recommended to continue chest tube placement with suction of 30cm H2O. On the third
day of hospitalization CXR showed worsening of pneumothorax requiring a larger chest tube .
Family and the patient did not want a larger tube and they considered end of life care and opted for hospice. We consulted patient support associate and soon the patient was moved to a single room. IR was consulted and the chest tube was removed. Patient was
moved to a single room. All the comfort measures were taken. Patient was given IV morphine for pain management and IV Robinul for increased airway secretions.
On 02/25/2024, 3:40 am patient . Family were contacted and emotional support was given.
Important imaging findings :
CXR 02/19/24
At least moderate size right-sided pneumothorax with possible minimal mediastinal shift right to left suggesting a small tension component.
CXR 02/20/24
Interval placement of a right-sided pigtail chest tube with decreased size of the pneumothorax.
CXR 02/22/24
Stable vbodp-varkwbhh-psadi right pneumothorax down to the level of the right fourth rib posteriorly.
Small stable bilateral pleural effusions
Stable moderate diffuse interstitial airway disease throughout both lungs
02/23/24
Persistent small right hydropneumothorax, slightly improved.
Procedure findings :
Chest tube placement 02/19/24
Successful fluoroscopically guided placement of a right chest tube.
Discharge Plan
-
Patient Disposition:
Date/Time
Date/Time: 02/25/24 03:40
Discharge Date and Time
Discharge Date/Time: 02/25/24 03:40
Print Language: LIBYAN
== END 2024-02-25 03:40 | disposition expired | DRG 199 ==
LOC: 2 NORTH 18:18
PROVIDERS: Nurse Practitioner; Radiology Diagnostic Radiology; Student in an Organized Health Care Education/Training Program; ADMITTING PHYSICIAN Internal Medicine; ATTENDING PHYSICIAN Hospitalist; CONSULT PHYSICIAN Internal Medicine Critical Care Medicine; EMERGENCY PHYSICIAN Emergency Medicine; FAMILY PHYSICIAN Family Medicine
PROC: 0W9930Z Drainage of Right Pleural Cavity with Drainage Device, Percutaneous Approach (ICD-10-PCS; 2024-02-19)
PROC: 5A0935A Assistance with Respiratory Ventilation, Less than 24 Consecutive Hours, High Flow/Velocity Cannula (ICD-10-PCS; 2024-02-22)
DX: J93.11 Primary spontaneous pneumothorax (principal); J96.21 Acute and chronic respiratory failure with hypoxia; J96.22 Acute and chronic respiratory failure with hypercapnia; J90 Pleural effusion, not elsewhere classified; J94.8 Other specified pleural conditions; R64 Cachexia; Z68.1 Body mass index [BMI] 19.9 or less, adult; I27.20 Pulmonary hypertension, unspecified; J44.9 Chronic obstructive pulmonary disease, unspecified; Z66 Do not resuscitate; I10 Essential (primary) hypertension; F10.21 Alcohol dependence, in remission; I35.0 Nonrheumatic aortic (valve) stenosis; J43.1 Panlobular emphysema; J47.9 Bronchiectasis, uncomplicated; Z99.81 Dependence on supplemental oxygen; D72.829 Elevated white blood cell count, unspecified; E78.5 Hyperlipidemia, unspecified; E86.0 Dehydration; F41.9 Anxiety disorder, unspecified; I48.0 Paroxysmal atrial fibrillation; Z79.899 Other long term (current) drug therapy; Z85.828 Personal history of other malignant neoplasm of skin; Z87.891 Personal history of nicotine dependence; Z90.49 Acquired absence of other specified parts of digestive tract; Z82.49 Family history of ischemic heart disease and other diseases of the circulatory system; Z86.19 Personal history of other infectious and parasitic diseases
CPT/HCPCS: 32557; 71045; 71046; 80048; 80053; 85025; 85379; 87070; 87811; 93005; 94640; 94644; 96361; 96374; 97162; 97167; 99152; 99153; 99291; C1729; C1769